=== PATIENT | female | born 1945 | race Caucasian/White ===

== ENCOUNTER 2020-06-23 09:00 | Outpatient (REF) | payer MEDICARE, SELFPAY ==
--- NOTE | 2020-06-23 | MM_ITS ---
EXAMINATION: MM SCREENING DIGITAL BREAST TOMOSYNTHESIS, BILATERAL CLINICAL INFORMATION: Screening. Asymptomatic. The lifetime risk of breast cancer based on the Tyrer-Cuzick Model is 4%. COMPARISON: Mammography: 01/21/2019, 12/24/2017 TECHNIQUE: Digital breast tomosynthesis is performed in both the craniocaudal and mediolateral oblique views along with computer-aided detection (CAD). Synthesized 2D images are generated from the tomosynthesis. FINDINGS: There are scattered areas of fibroglandular density (ACR BI-RADS breast composition Category b). There are no significant masses, abnormal calcifications, or other abnormalities. Parenchymal pattern is similar to prior studies. IMPRESSION: No mammographic evidence of malignancy. ASSESSMENT: BI-RADS 1: Negative RECOMMENDATION: Routine annual mammography screening. This patient's information was entered into a reminder system with a target due date for their next mammogram.
== END 2020-06-23 09:01 | disposition home or self-care (01) ==
LOC: HO.MAMMO 09:00
PROVIDERS: PCP Internal Medicine; Visit Provider Internal Medicine
DX: Z12.31 Encounter for screening mammogram for malignant neoplasm of breast (principal)
CPT/HCPCS: 77063; 77067; 78014

== ENCOUNTER 2020-07-05 10:29 | Outpatient (REF) | payer MEDICARE, SELFPAY ==
--- NOTE | 2020-07-05 | MM_ITS ---
EXAMINATION: BONE DENSITOMETRY CLINICAL INDICATION: Age-related osteoporosis without current pathological fracture. COMPARISON: Previous BD dated 12/24/2017 and baseline BD dated 07/08/2007. TECHNIQUE: Using a [employer] DXA System (software version: 13.1) manufactured by [employer], dual-energy x-ray absorptiometry was performed of the lumbar spine and left hip. The images are of good technical quality. Summary results are attached. FINDINGS: AP SPINE L1-L2 (excluding L3 and L4): The data of L1-L4 has been changed to exclude the L3 and L4 vertebral bodies, because levocurvature and degenerative changes at these levels may cause overestimation of lumbar spine density. Current: BMD 0.721 g/cm2, Z-score -2.5, T-score 3.7, osteoporosis, 0.6% decrease from previous, 11.6% decrease from baseline (<5% change is not significant). Prior: BMD 0.725 g/cm2. Baseline: BMD 0.816 g/cm2. LEFT FEMUR, NECK: Current: BMD 0.590 g/cm2, Z-score -1.7, T-score -3.2, osteoporosis. Prior: BMD 0.694 g/cm2. Baseline: BMD 0.740 g/cm2. LEFT FEMUR, TOTAL: Current: BMD 0.737 g/cm2, Z-score -0.8, T-score -2.2, osteopenia, 2.6% decrease from previous, 10.8% decrease from baseline (<5% change is not significant). Prior: BMD 0.757 g/cm2. Baseline: BMD 0.826 g/cm2. IDENTIFIED RISK FACTORS: Menopause, tobacco use (current smoker), family history (parental hip fracture). HISTORY OF FRACTURE: None listed. MEDICATIONS: Vitamin D. IMPRESSION: 1. DIAGNOSIS: Osteoporosis based on the lowest T-score value of -3.7 in the lumbar spine applying World Health Organization criteria. 2. 10-YEAR FRACTURE RISK PREDICTION, FRAX: Major osteoporotic fracture (clinical spine, forearm, hip or shoulder) 50.3%. Hip fracture 41.6%. 3. Treatment Recommendations: NOF guidelines recommend consideration for treatment in postmenopausal women and men age 50 and older presenting with the following: -A hip or vertebral (clinical or morphometric) fracture. -T-score less than or equal to -2.5 at the femoral neck or spine after appropriate evaluation to exclude secondary causes. -Low bone mass at the hip or spine and a 10-year fracture probability by FRAX of greater than or equal to 3% for hip fracture or greater than or equal to 20% for major osteoporotic fracture based on the [place] adapted WHO algorithm. 4. Other Recommendations: All treatment decisions require clinical judgment and consideration of individual patient factors, including patient preferences, comorbidities, previous drug use, risk factors not captured in the FRAX model (e.g. frailty, falls, vitamin D deficiency, increased bone turnover, interval significant decline in bone density) and possible under or overestimation of fracture risk by FRAX. Additional medical evaluation for secondary cause of low bone mineral density may be appropriate. FUTURE SCAN RECOMMENDATION: People with diagnosed cases of osteoporosis or at high risk for fracture should have regular bone mineral density tests. For patients eligible for Medicare, routine testing is allowed once every 2 years. The testing frequency can be increased to one year for patients who have rapidly progressing disease, those who are receiving or discontinuing medical therapy to restore bone mass, or have additional risk factors.
== END 2020-07-05 10:30 | disposition home or self-care (01) ==
LOC: HO.MAMMO 10:29
PROVIDERS: PCP Internal Medicine; Visit Provider Internal Medicine
DX: Z13.820 Encounter for screening for osteoporosis (principal); M81.0 Age-related osteoporosis without current pathological fracture; F17.200 Nicotine dependence, unspecified, uncomplicated; Z78.0 Asymptomatic menopausal state; Z87.81 Personal history of (healed) traumatic fracture; Z79.899 Other long term (current) drug therapy
CPT/HCPCS: 77080

== ENCOUNTER 2020-09-09 08:38 | Outpatient (REF) | payer MEDICARE, SELFPAY ==
--- NOTE | 2020-09-09 11:28 | XR_ITS ---
EXAMINATION: XR PELVIS CLINICAL INFORMATION: Pain in unspecified hip. COMPARISON: None TECHNIQUE: 04/05/2016 FINDINGS: Compared to the prior study there has been no significant progression of degenerative changes in the right hip with nearly [id number] appearance superiorly. Sclerosis and some osteophyte formation is present appearances of the left hip are unchanged. Only mild degenerative changes are seen on the left. . XR/XR pelvis 1-2V IMPRESSION: Progression of significant degenerative changes in the right hip with near [id number] appearance of the superior joint space.
== END 2020-09-09 08:39 | disposition home or self-care (01) ==
LOC: HO.HOSX 08:38
PROVIDERS: Visit Provider Orthopaedic Surgery
DX: M16.11 Unilateral primary osteoarthritis, right hip (principal)
CPT/HCPCS: 72170; 99212

== ENCOUNTER → 2020-09-28 10:53 | Outpatient (BNVA) | payer MEDICARE, SELFPAY | PROVIDERS: PCP Internal Medicine; Visit Provider Urology | DX: N32.81 Overactive bladder (principal) | CPT/HCPCS: Q3014 ==

== ENCOUNTER 2020-09-30 07:06 | Outpatient (REF) | payer MEDICARE, SELFPAY ==
[2020-09-30 08:31] LABS: Alanine Aminotransferase 12 U/L (0-31); Anion Gap 12 (12-20); Aspartate Amino Transferase 15 U/L (5-31); Blood Urea Nitrogen 15 mg/dL (9-16); Calcium 9.2 mg/dL (8.4-10.2); Carbon Dioxide 29 mmol/L (22-29); Chloride 106 mmol/L (96-108); Cholesterol 156 mg/dL; Estimated Glomerular Filt Rate > 60; Glucose Random 86 mg/dL (60-115); HDL Cholesterol 47 mg/dL; LDL Cholesterol Calculated 89 mg/dl; Potassium 4.5 mmol/l (3.3-5.1); Sodium 142 mmol/L (135-145); Triglycerides 103 mg/dL
[2020-09-30 08:53] LABS: Vitamin D 25-OH Total 100.4 ng/mL (>30)
== END 2020-09-30 07:07 | disposition home or self-care (01) ==
LOC: HO.LAB 07:06
PROVIDERS: Visit Provider Internal Medicine
DX: E78.5 Hyperlipidemia, unspecified (principal); M81.0 Age-related osteoporosis without current pathological fracture; E66.09 Other obesity due to excess calories; Z68.31 Body mass index [BMI] 31.0-31.9, adult; E55.9 Vitamin D deficiency, unspecified
CPT/HCPCS: 36415; 80048; 80061; 82306; 84450; 84460

== ENCOUNTER 2020-12-06 06:09 | Outpatient (REF) | payer MEDICARE, SELFPAY | END 2020-12-06 06:10 | disposition home or self-care (01) | LOC: HO.RADIR 06:09 | PROVIDERS: Visit Provider Anesthesiology | DX: Z13.89 Encounter for screening for other disorder (principal) | CPT/HCPCS: J3300; Q9967 ==

== ENCOUNTER → 2020-12-14 07:57 | Outpatient (BNVA) | payer MEDICARE, SELFPAY | PROVIDERS: PCP Internal Medicine; Referring Provider Internal Medicine; Visit Provider Internal Medicine | DX: M81.0 Age-related osteoporosis without current pathological fracture (principal); E55.9 Vitamin D deficiency, unspecified | CPT/HCPCS: 99202 ==

== ENCOUNTER 2020-12-14 08:46 | Outpatient (REF) | payer MEDICARE, SELFPAY ==
[2020-12-14 10:52] LABS: Albumin Level 4.2 g/dL (3.5-5.0); Calcium 9.3 mg/dL (8.4-10.2); Phosphorus 3.8 mg/dL (2.7-4.5)
[2020-12-14 11:02] LABS: Thyroid Stimulating Hormone 1.08 uIU/mL (0.32-4.0)
[2020-12-15 15:01] LABS: Prot Elec - Albumin 4.1 g/dL (3.8-4.8); Prot Elec - Alpha1 0.4 g/dL (0.2-0.3); Prot Elec - Alpha2 0.9 g/dL (0.5-0.9); Prot Elec - Beta 1 0.5 g/dL (0.4-0.6); Prot Elec - Beta 2 0.3 g/dL (0.2-0.5); Prot Elec - Total Protein 7.1 g/dL (6.1-8.1)
[2020-12-15 16:12] LABS: Calcium, Ionized 4.9 mg/dL (4.8-5.6)
[2020-12-15 18:11] LABS: Calcium (PTHI) 9.6 mg/dL (8.6-10.4); PTHI 35 pg/mL (14-64)
[2020-12-17 12:56] LABS: Alkaline Phosphatase Bone 14.7 mcg/L (5.6-29.0)
[2020-12-20 16:02] LABS: N-Telopeptide 57 (see note); NTXCreaRU 65 mg/dL (20-275)
== END 2020-12-14 08:47 | disposition home or self-care (01) ==
LOC: HO.10HDL 08:46
PROVIDERS: Visit Provider Internal Medicine
DX: M81.0 Age-related osteoporosis without current pathological fracture (principal)
CPT/HCPCS: 36415; 82040; 82310; 82330; 82523; 83970; 84075; 84100; 84155; 84165; 84443

== ENCOUNTER 2020-12-26 12:14 | Outpatient (REF) | payer MEDICARE, SELFPAY ==
[2020-12-26 13:00] LABS: Creatinine, 24Hr Urine 0.8 G/Day (1.0-2.0); Creatinine, mg/dL 75.24; Total Volume 24 Hour Urine 1000 mL
[2020-12-27 19:01] LABS: Calcium, 24 Hr Urine 170 mg/24 h; Calcium/Creatinine Ratio 224 mg/g creat (30-275); Creatinine 24Hr Urine 0.76 g/24 h (0.50-2.15)
== END 2020-12-26 12:15 | disposition home or self-care (01) ==
LOC: HO.LNP 12:14
PROVIDERS: Visit Provider Internal Medicine
DX: M81.0 Age-related osteoporosis without current pathological fracture (principal)
CPT/HCPCS: 82340; 82570

== ENCOUNTER 2021-01-10 06:05 | Outpatient (REF) | payer MEDICARE, SELFPAY ==
--- NOTE | ~2021-01-10 | FL_ITS ---
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 Fluoroscopy time: 0.2 minutes DAP: 1.72 Gycm2 Images: 2 FINDINGS: There is a spinal needle overlying the superior lateral right hip joint with some intracapsular contrast demonstrated. There are osteoarthritic changes again seen with superior hip joint narrowing and subchondral sclerosis and spurring. FL/FL guidance in treatment room IMPRESSION: Fluoroscopy for pain management procedure.
== END 2021-01-10 06:06 | disposition home or self-care (01) ==
LOC: HO.RADIR 06:05
PROVIDERS: Visit Provider Anesthesiology
DX: M16.11 Unilateral primary osteoarthritis, right hip (principal)
CPT/HCPCS: 20610; J3300; Q9967

== ENCOUNTER → 2021-02-13 08:32 | Outpatient (BNVA) | payer MEDICARE, SELFPAY | PROVIDERS: PCP Internal Medicine; Visit Provider Internal Medicine | CPT/HCPCS: Q3014 ==

== ENCOUNTER → 2021-02-15 11:04 | Outpatient (BNVA) | payer MEDICARE, SELFPAY | PROVIDERS: PCP Internal Medicine; Visit Provider Anesthesiology | DX: M16.11 Unilateral primary osteoarthritis, right hip (principal) | CPT/HCPCS: Q3014 ==

== ENCOUNTER 2021-03-11 07:34 | Outpatient (REF) | payer MEDICARE, SELFPAY ==
[2021-03-11 08:24] LABS: Alanine Aminotransferase 7 U/L (0-31); Anion Gap 13 (12-20); Aspartate Amino Transferase 14 U/L (5-31); Blood Urea Nitrogen 13 mg/dL (9-16); Calcium 9.7 mg/dL (8.4-10.2); Carbon Dioxide 28 mmol/L (22-29); Chloride 107 mmol/L (96-108); Cholesterol 168 mg/dL; Estimated Glomerular Filt Rate > 60; Glucose Fasting 90 mg/dL (60-99); HDL Cholesterol 47 mg/dL; LDL Cholesterol Calculated 97 mg/dl; Potassium 4.5 mmol/L (3.3-5.1); Sodium 143 mmol/L (135-145); Triglycerides 122 mg/dL
[2021-03-11 08:47] LABS: Vitamin D 25-OH Total 42.6 ng/mL (>30)
== END 2021-03-11 07:35 | disposition home or self-care (01) ==
LOC: HO.LAB 07:34
PROVIDERS: PCP Internal Medicine; Visit Provider Internal Medicine
DX: M81.0 Age-related osteoporosis without current pathological fracture (principal); E78.5 Hyperlipidemia, unspecified; I10 Essential (primary) hypertension
CPT/HCPCS: 36415; 80048; 80061; 82306; 84450; 84460

== ENCOUNTER → 2021-04-17 07:43 | Outpatient (BNVA) | payer MEDICARE, SELFPAY | PROVIDERS: PCP Internal Medicine; Visit Provider Internal Medicine | CPT/HCPCS: Q3014 ==

== ENCOUNTER 2021-05-21 11:07 | Inpatient (IN) | payer MEDICARE, SELFPAY ==
[2021-05-21] VITALS (7 sets, daily range): BP systolic 125–140; BP diastolic 60–80; PULSE 74–108; RESP 16–20; TEMP 36.1–37.2; O2SAT 94–99; BMI 28.7
--- NOTE | ~2021-05-21 | MR_ITS ---
MR BRAIN WITHOUT AND WITH CONTRAST CLINICAL INFORMATION: Lung cancer to rule out brain metastases. COMPARISON: None available. TECHNIQUE: Multiplanar, multisequence MRI of the brain was obtained before and after the intravenous administration of 8 mL Gadavist. FINDINGS: There is global cerebral volume loss and there is mild chronic microangiopathy. There is no hydrocephalus, extra-axial surface collection, or herniation. The major flow voids at the skull base are preserved. There is no acute infarct on diffusion-weighted imaging. There is no intracranial hemorrhage on the gradient recalled echo acquisition. The midline structures are normal. The cerebellar tonsils are normally positioned. The cerebellum and brainstem are normal. The craniocervical junction is normal. Osseous marrow signal intensity is homogenous. The visualized soft tissues are unremarkable. Left maxillary sinus is nearly completely opacified. MR/MR head/brain wo/w con IMPRESSION: - There is no evidence of intracranial metastatic disease; there are no enhancing lesions intracranially. - There is global cerebral volume loss and there is mild chronic microangiopathy. - Left maxillary sinus is nearly completely opacified.
--- NOTE | ~2021-05-21 | CT_ITS ---
EXAMINATION: CT CHEST WITHOUT CONTRAST CLINICAL INFORMATION: Coughing congestion with leukocytosis. COMPARISON: Chest x-ray of same day TECHNIQUE: Multidetector volumetric CT imaging of the chest was done. Axial MIP volume rendering provided. Sagittal and coronal reformatted images were obtained. This CT examination was performed using dose optimization techniques as appropriate, variously including the following: *Automated exposure control *Adjustment of mA and/or kV according to patient size (this includes techniques or standardized protocols for targeted exams where dose is matched to indication/reason for exam; i.e. extremities or head) *Use of iterative reconstruction technique DLP: 234.62 mGy-cm FINDINGS: LUNGS: There are moderate changes of centrilobular emphysema seen throughout the lungs. The trachea is patent. The left mainstem bronchus appears unremarkable. There appears to be some concentric narrowing of the right mainstem bronchus from soft tissue density about the mediastinum and right hilum. There is consolidative disease seen within the posterior aspect of the right upper lobe. The more peripheral aspect of the disease is not as consolidated as the more central portion. This finding may be related to postobstructive pneumonitis from a more central mass. There are some cystic changes seen within the peripheral region of disease which appears to be related to be centrilobular emphysema. There are numerous sub-4 mm densities present. There are some enlarged densities along the right minor fissure consistent with enlarged lymph nodes. One of these measures approximately 1.1 x 0.5 cm in size. There is bilateral apical pleural-parenchymal scarring. There is a 5 mm noncalcified subpleural nodule seen within the right lower lobe on image 242 of [id number]. MEDIASTINUM: Heart normal size. Coronary artery calcification is seen. No pericardial effusion. As ascending thoracic aorta measures 4 cm in diameter. There is bulky mediastinal and right hilar adenopathy/mass present. Within the precarinal region there appears be a 3.4 x 3.4 cm soft tissue density/mass. This extends in a vertical length to approximately 5.2 cm. The soft tissue density appears to encase the right mainstem bronchus with extension of soft tissue density into the hilum. Its difficult to differentiate between what is consolidated lung and what may be central mass. PLEURA: No pleural effusion is seen. AXILLA: No axillary lymphadenopathy is noted. Internal mammary chain unremarkable. UPPER ABDOMEN: Unremarkable. OSSEOUS STRUCTURES: No suspicious destructive bony lesion identified. Multilevel degenerative disc disease. There are mild anterior chronic compression fractures at the T7 and T8 levels with some kyphosis. CT/CT chest wo con IMPRESSION: Right mediastinal and hilar lymphadenopathy/soft tissue mass causing narrowing of the right mainstem bronchus with what appears to be postobstructive pneumonitis. Significant centrilobular emphysema.
--- NOTE | ~2021-05-21 | XR_ITS ---
EXAMINATION: XR CHEST CLINICAL INFORMATION: Cough, congestion and shortness of breath. COMPARISON: Chest radiograph on 05/14/2007. TECHNIQUE: Frontal view of the chest was obtained. FINDINGS: The heart is normal in size. The cardiomediastinal and hilar contours are within normal limits. There is increased opacity overlying the right upper lung concerning for pneumonia. No pleural effusion or pneumothorax. Minimal scarring seen at the left lung apex. XR/XR chest 1V IMPRESSION: Opacity overlying the right upper lung is concerning for right upper lobe pneumonia. Consider follow-up imaging after treatment.
[2021-05-21 11:50] LABS: Hemoglobin 13.1 g/dl (12.0-16.0); Mean Corpuscular Hemoglobin 26.4 pg (27.0-33.0); Mean Corpuscular Volume 82.7 fL (80-98); Mean Platelet Volume 8.3 fL (9.4-12.3); Platelet Count 263 X10*3/uL (160-400); Red Blood Count 4.96 X10*6/uL (4.20-5.50); Red Cell Distribution Width 14.6 % (11.0-16.0); White Blood Count 17.5 X10*3/uL (4.8-10.8)
--- NOTE | 2021-05-21 12:13 | ED_ITS ---
HPI - URI/Sore Throat General Chief Complaint: Upper Respiratory Symptoms Stated Complaint: congested Time Seen by Provider: 05/21/21 11:51 Source: patient Mode of arrival: ambulatory History of Present Illness HPI Narrative: 75-year-old female with a past medical history of anxiety, hyperlipidemia, urge incontinence, vaccinated with Pfizer, presenting to the ED complaining of 1 week of dry cough, congestion, and SOB. Denies fever, chills, chest pain, abdominal pain, nausea/vomiting, LE edema, sick contacts, recent travel, COVID-19 exposure, history blood clots Related Data Home Medications Medication Instructions Recorded Confirmed calcium carbonate 320 mg calcium 650 mg PO DAILY 04/17/21 05/21/21 (750 mg) chewable tablet (Calcium Antacid) Previous Rx's Medication Instructions Recorded atorvastatin 10 mg tablet 10 mg PO DAILY #90 tab 06/28/20 mirabegron 25 mg tablet,extended 25 mg PO DAILY #90 tab 09/28/20 release 24 hr (Myrbetriq) lorazepam 0.5 mg tablet 0.5 mg PO DAILY PRN #20 tab 04/19/21 naproxen 500 mg tablet 500 mg PO .QD PRN #30 tab 04/24/21 Allergies Allergy/AdvReac Type Severity Reaction Status Date / Time No Known Allergies Allergy Verified 05/21/21 11:14 Review of Systems Review of Systems: Constitutional: No Fever, No Chills, No Fatigue, No Malaise ENT/Mouth: No Ear Pain, +Nasal Congestion, No Hoarseness, No sore throat, No Rhinorrhea Eyes: No Eye Pain, No Swelling, No Redness, No Discharge Cardiovascular: No Chest Pain, +SOB, No Orthopnea, No Edema, No Palpitations Respiratory: + Cough, No Wheezing, No Dyspnea Gastrointestinal: No Nausea, No Vomiting, No Diarrhea, No Constipation, No Abdominal pain Genitourinary: No Dysuria, No Urinary Frequency, No Hematuria Musculoskeletal: No joint pain, No Myalgias Skin: No Skin Lesions, No rash Neuro: No Weakness, No Numbness, No Headache Yes all other systems are reviewed and are negative [facility] Past Medical History Attestation statement: The following information was validated with the patient. Medical History Anxiety Dyslipidemia Osteoarthritis of right hip Osteoporosis Smoker unmotivated to quit Tubular adenoma of colon Urge incontinence of urine Vaccination refused by patient Vitamin D deficiency Surgical History History of colonoscopy Family History Family History Father Leukemia Mother Hip fracture Congestive heart failure Brother Bladder cancer Social History Social History Household Members: Spouse Housing: House Do you presently have visiting nurse or other home services: No Alcohol intake: never Patient Tobacco Use Status: Current everyday Tobacco user Tobacco use type: Cigarette Cigarette Packs Per Day: 1 Years Smoked: more than 50 years e-Cigarette/Vaping Use: Never Used Use of substances other than those prescribed or required for medical reasons: No Have you been hit, kicked, punched, or otherwise hurt by someone within the past year? If so, by whom?: No Do you feel safe in your current relationship?: Yes Is there a partner from a previous relationship who is making you feel unsafe now?: No Are you made to feel afraid or neglected: No Advance Directives: No Advance Directives Information Provided: No Do you have thoughts of harming others: None Do you have a plan to hurt others: No Plan Recently lost weight without trying: No Nutrition Risks: No Nutritional Risk Physical Exam Vital Signs: Vital Signs: Last Vital Signs Temp 97.4 F 05/21/21 19:47 Pulse 95 05/21/21 20:21 Resp 18 05/21/21 19:47 BP 125/66 05/21/21 19:47 Pulse Ox 97 05/21/21 19:47 Body Mass Index 28.7 Const: General: cooperative, healthy appearing and no acute distress Orientation/consciousness: patient oriented x3 Limitations: no limitations HENMT: Head: Yes normal to inspection Ears: hearing grossly normal bilaterally General nose exam: Normal external nose present Face and sinus: Yes normal facial exam Eyes: General: appearance normal, both eyes and all related structures EOM: EOMs intact bilaterally Neck: Neck: Yes normal visual inspection and Yes no meningeal signs Resp: Effort & Inspection: normal respiratory effort Auscultation: clear to auscultation bilaterally, no rales, no rhonchi and no wheezes Cardio: Rate: regular rate Heart sounds: S1 normal heart sound present and S2 normal heart sound present GI: Inspection: Yes normal to inspection Palpation (GI): Soft to palpation, nontender, no guarding and not rigid Skin: Rashes: no rashes Wounds: no wounds Neuro: General: patient oriented x3 and no meningeal signs Gait exam (Neuro): Normal gait present Extrem: General: Yes normal to inspection, Yes no pedal edema and Yes no calf tenderness Course Course Course Narrative: -1305--noted leukocytosis of 17.5, repeat vitals with tachycardia 108 >> lactic/blood cultures added and empiric IV Ceftriaxone. Will obtain dry CT chest. -1426--labs otherwise unremarkable, lactic acid negative -COVID-19/influenza/RSV negative XR chest 1V IMPRESSION: Opacity overlying the right upper lung is concerning for right upper lobe pneumonia. Consider follow-up imaging after treatment. >Azithromycin added >> plan for admission as patient meets SIRS criteria -UA with wbc's and leuk esterase but contaminated 1449--CT chest wo con IMPRESSION: Right mediastinal and hilar lymphadenopathy/soft tissue mass causing narrowing of the right mainstem bronchus with what appears to be postobstructive pneumonitis. ? Significant centrilobular emphysema. >> thoracic surgery consulted -1508--thoracic surgery will consult on patient. Patient admitted to hospitalist service MDM - URI/Sore Throat MDM Narrative Medical decision making narrative: 75-year-old female with a past medical history of anxiety, hyperlipidemia, urge incontinence, vaccinated with Pfizer, presenting to the ED complaining of 1 week of dry cough, congestion, and SOB. On exam VSS, NAD/nontoxic appearing, lungs CTA, no pedal edema or calf te nderness, concern for viral syndrome/COVID-19. Will pneumonia. Low concern for ACS/PE or CHF Plan: Labs, COVID-19 testing, CXR, albuterol, symptomatic remedies, reassess Lab Data Result diagrams: 05/21/21 11:45 05/21/21 12:35 Labs: Lab Results 05/21/21 05/21/21 05/21/21 Range/Units 11:20 11:45 11:45 WBC 17.5 H (4.8-10.8) X10*3/uL RBC 4.96 (4.20-5.50) X10*6/uL Hgb 13.1 (12.0-16.0) g/dl Hct 41.0 (37-47) % MCV 82.7 (80-98) fL MCH 26.4 L (27.0-33.0) pg MCHC 32.0 (31.0-35.0) g/dl RDW 14.6 (11.0-16.0) % Plt Count 263 (160-400) X10*3/uL MPV 8.3 L (9.4-12.3) fL Immature Gran % (Auto) Cancelled Neut % (Auto) Cancelled Lymph % (Auto) Cancelled [place] % (Auto) Cancelled Eos % (Auto) Cancelled Baso % (Auto) Cancelled Lymph # (Auto) Cancelled [place] # (Auto) Cancelled Eos # (Auto) Cancelled Baso # (Auto) Cancelled Abs Immat Gran (auto) Cancelled Absolute Neuts (auto) Cancelled Absolute Nucleated RBC 0.000 (0.0-0.012) X10*3/uL Nucleated RBC % (auto) 0.0 (0.0-0.2) /100WBC Neutrophils % (Manual) 81 H (45-73) % Band Neutrophils % 12 H (3-5) % Lymphocytes % (Manual) 3 L (20-40) % Monocytes % (Manual) 4 (2-11) % Abs Neuts (Manual) 16.3 H (2.2-7.9) X10*3/uL Lymphocytes # (Manual) 0.5 L (0.6-4.8) X10*3/uL Monocytes # (Manual) 0.7 (0.0-1.2) X10*3/uL Toxic Vacuolation PRESENT Platelet Estimate NORMAL (NORMAL) Plt Morphology Comment NORMAL RBC Morphology NORMAL Sodium (135-145) mmol/L Potassium (3.3-5.1) mmol/L Chloride (96-108) mmol/L Carbon Dioxide (22-29) mmol/L Anion Gap (12-20) BUN (9-16) mg/dL Creatinine (0.5-1.4) mg/dL Estim Creat Clear Calc Estimated GFR Random Glucose (60-115) mg/dL Lactic Acid (0.5-2.0) mmol/L Calcium (8.4-10.2) mg/dL Magnesium (1.6-2.6) mg/dL Total Bilirubin (0.0-1.0) mg/dL Direct Bilirubin (0.0-0.5) mg/dL AST (5-31) U/L ALT (0-31) U/L Alkaline Phosphatase (39-117) U/L B-Natriuretic Peptide 13 (<100) pg/mL Total Protein (6.5-8.0) g/dL Albumin (3.5-5.0) g/dL Procalcitonin ng/mL Urine Color Urine Appearance Urine pH (5.0-8.0) Ur Specific [place] (1.005-1.025) Urine Protein (NEG-TRACE) MG/DL Urine Glucose (UA) (NEG) MG/DL Urine Ketones (NEG) MG/DL Urine Blood (NEG) Urine Nitrite (NEG) Ur Leukocyte Esterase (NEG) Urine RBC (0) /HPF Urine WBC (0-4) /HPF Ur Squamous Epith Cells /LPF Urine Bacteria /LPF Urine Mucus /LPF Coronavirus (PCR) NEGATIVE (Negative) Influenza Type A (PCR) NEGATIVE (Negative) Influenza Type B (PCR) NEGATIVE (Negative) RSV RNA Qual (PCR) NEGATIVE (Negative) 05/21/21 05/21/21 05/21/21 Range/Units 12:35 12:35 13:49 WBC (4.8-10.8) X10*3/uL RBC (4.20-5.50) X10*6/uL Hgb (12.0-16.0) g/dl Hct (37-47) % MCV (80-98) fL MCH (27.0-33.0) pg MCHC (31.0-35.0) g/dl RDW (11.0-16.0) % Plt Count (160-400) X10*3/uL MPV (9.4-12.3) fL Immature Gran % (Auto) Neut % (Auto) Lymph % (Auto) [place] % (Auto) Eos % (Auto) Baso % (Auto) Lymph # (Auto) [place] # (Auto) Eos # (Auto) Baso # (Auto) Abs Immat Gran (auto) Absolute Neuts (auto) Absolute Nucleated RBC (0.0-0.012) X10*3/uL Nucleated RBC % (auto) (0.0-0.2) /100WBC Neutrophils % (Manual) (45-73) % Band Neutrophils % (3-5) % Lymphocytes % (Manual) (20-40) % Monocytes % (Manual) (2-11) % Abs Neuts (Manual) (2.2-7.9) X10*3/uL Lymphocytes # (Manual) (0.6-4.8) X10*3/uL Monocytes # (Manual) (0.0-1.2) X10*3/uL Toxic Vacuolation Platelet Estimate (NORMAL) Plt Morphology Comment RBC Morphology Sodium 138 (135-145) mmol/L Potassium 4.2 (3.3-5.1) mmol/L Chloride 103 (96-108) mmol/L Carbon Dioxide 26 (22-29) mmol/L Anion Gap 13 (12-20) BUN 13 (9-16) mg/dL Creatinine 0.85 (0.5-1.4) mg/dL Estim Creat Clear Calc 62.1 Estimated GFR > 60 Random Glucose 100 (60-115) mg/dL Lactic Acid 1.7 (0.5-2.0) mmol/L Calcium 9.6 (8.4-10.2) mg/dL Magnesium 1.7 (1.6-2.6) mg/dL Total Bilirubin 0.5 (0.0-1.0) mg/dL Direct Bilirubin 0.2 (0.0-0.5) mg/dL AST 11 (5-31) U/L ALT 9 (0-31) U/L Alkaline Phosphatase 125 H (39-117) U/L B-Natriuretic Peptide (<100) pg/mL Total Protein 7.0 (6.5-8.0) g/dL Albumin 4.1 (3.5-5.0) g/dL Procalcitonin 0.29 ng/mL Urine Color Urine Appearance Urine pH (5.0-8.0) Ur Specific [place] (1.005-1.025) Urine Protein (NEG-TRACE) MG/DL Urine Glucose (UA) (NEG) MG/DL Urine Ketones (NEG) MG/DL Urine Blood (NEG) Urine Nitrite (NEG) Ur Leukocyte Esterase (NEG) Urine RBC (0) /HPF Urine WBC (0-4) /HPF Ur Squamous Epith Cells /LPF Urine Bacteria /LPF Urine Mucus /LPF Coronavirus (PCR) (Negative) Influenza Type A (PCR) (Negative) Influenza Type B (PCR) (Negative) RSV RNA Qual (PCR) (Negative) 05/21/21 Range/Units 14:03 WBC (4.8-10.8) X10*3/uL RBC (4.20-5.50) X10*6/uL Hgb (12.0-16.0) g/dl Hct (37-47) % MCV (80-98) fL MCH (27.0-33.0) pg MCHC (31.0-35.0) g/dl RDW (11.0-16.0) % Plt Count (160-400) X10*3/uL MPV (9.4-12.3) fL Immature Gran % (Auto) Neut % (Auto) Lymph % (Auto) [place] % (Auto) Eos % (Auto) Baso % (Auto) Lymph # (Auto) [place] # (Auto) Eos # (Auto) Baso # (Auto) Abs Immat Gran (auto) Absolute Neuts (auto) Absolute Nucleated RBC (0.0-0.012) X10*3/uL Nucleated RBC % (auto) (0.0-0.2) /100WBC Neutrophils % (Manual) (45-73) % Band Neutrophils % (3-5) % Lymphocytes % (Manual) (20-40) % Monocytes % (Manual) (2-11) % Abs Neuts (Manual) (2.2-7.9) X10*3/uL Lymphocytes # (Manual) (0.6-4.8) X10*3/uL Monocytes # (Manual) (0.0-1.2) X10*3/uL Toxic Vacuolation Platelet Estimate (NORMAL) Plt Morphology Comment RBC Morphology Sodium (135-145) mmol/L Potassium (3.3-5.1) mmol/L Chloride (96-108) mmol/L Carbon Dioxide (22-29) mmol/L Anion Gap (12-20) BUN (9-16) mg/dL Creatinine (0.5-1.4) mg/dL Estim Creat Clear Calc Estimated GFR Random Glucose (60-115) mg/dL Lactic Acid (0.5-2.0) mmol/L Calcium (8.4-10.2) mg/dL Magnesium (1.6-2.6) mg/dL Total Bilirubin (0.0-1.0) mg/dL Direct Bilirubin (0.0-0.5) mg/dL AST (5-31) U/L ALT (0-31) U/L Alkaline Phosphatase (39-117) U/L B-Natriuretic Peptide (<100) pg/mL Total Protein (6.5-8.0) g/dL Albumin (3.5-5.0) g/dL Procalcitonin ng/mL Urine Color YELLOW Urine Appearance HAZY Urine pH 6.0 (5.0-8.0) Ur Specific [place] 1.015 (1.005-1.025) Urine Protein TRACE (NEG-TRACE) MG/DL Urine Glucose (UA) NEG (NEG) MG/DL Urine Ketones NEG (NEG) MG/DL Urine Blood TRACE (NEG) Urine Nitrite NEG (NEG) Ur Leukocyte Esterase 2+ H (NEG) Urine RBC 1-4 (0) /HPF Urine WBC 5-9 H (0-4) /HPF Ur Squamous Epith Cells 3+ /LPF Urine Bacteria 1+ /LPF Urine Mucus 1+ /LPF Coronavirus (PCR) (Negative) Influenza Type A (PCR) (Negative) Influenza Type B (PCR) (Negative) RSV RNA Qual (PCR) (Negative) Discharge Plan Discharge Clinical Impression: Mediastinal mass Pneumonia Qualifiers: Pneumonia type: due to unspecified organism Laterality: right Patient Disposition: Admitted As Inpatient Interventions: Admission Worksheet (ED) Last Done: 05/21/21 19:32 Discharge Date/Time: 05/21/21 19:33
[2021-05-21 12:14] LABS: Influenza A PCR NEGATIVE (Negative); Influenza B PCR NEGATIVE (Negative); Resp Syncy Virus RNA Qual PCR NEGATIVE (Negative); SARS COV2 PCR INHOUSE NEGATIVE (Negative)
[2021-05-21 12:17] LABS: Band Neutrophils Percent 12 % (3-5); Lymphocytes Absolute Manual 0.5 X10*3/uL (0.6-4.8); Lymphocytes Percent Manual 3 % (20-40); Monocytes Absolute Manual 0.7 X10*3/uL (0.0-1.2); Monocytes Percent Manual 4 % (2-11); Neutrophils Absolute Manual 16.3 X10*3/uL (2.2-7.9); Neutrophils Percent Manual 81 % (45-73); RBC Morphology NORMAL
[2021-05-21 12:18] LABS: Platelet Estimate NORMAL (NORMAL); Platelet Morphology Comment NORMAL; Toxic Vacuolation PRESENT
[2021-05-21 12:36] LABS: B Type Natriuretic Peptide 13 pg/mL (<100)
[2021-05-21] MEDS: guaiFENesin LA 600 MG TAB.ER.12H PO (12:36)
[2021-05-21] MEDS: Benzonatate 100 MG CAPSULE PO (12:36)
[2021-05-21 13:12] LABS: Alanine Aminotransferase 9 U/L (0-31); Albumin Level 4.1 g/dL (3.5-5.0); Alkaline Phosphatase 125 U/L (39-117); Anion Gap 13 (12-20); Aspartate Amino Transferase 11 U/L (5-31); Bilirubin Direct 0.2 mg/dL (0.0-0.5); Bilirubin Total 0.5 mg/dL (0.0-1.0); Blood Urea Nitrogen 13 mg/dL (9-16); Calcium 9.6 mg/dL (8.4-10.2); Carbon Dioxide 26 mmol/L (22-29); Chloride 103 mmol/L (96-108); Creatinine Clr Calc Pharmacy 62.1; Estimated Glomerular Filt Rate > 60; Glucose Random 100 mg/dL (60-115); Magnesium 1.7 mg/dL (1.6-2.6); Potassium 4.2 mmol/L (3.3-5.1); Sodium 138 mmol/L (135-145)
[2021-05-21] MEDS: Albuterol Sulfate 90 MCG 8 GM INHALER 4 PUFF INHALE (13:12)
[2021-05-21] MEDS: cefTRIAXone sodium 1 GM in 0.9 % Sodium Chloride 50 ML IV (14:05)
[2021-05-21 14:10] LABS: Lactic Acid 1.7 mmol/L (0.5-2.0)
[2021-05-21 14:18] LABS: Glucose Urine UA NEG (NEG); Leukocyte Esterase Urine 2+ (NEG); Nitrite Urine NEG (NEG); Specific Gravity - Urine 1.015 (1.005-1.025); UACC Culture Trigger YES; Urine Blood TRACE (NEG); Urine Ketones NEG (NEG); Urine Protein TRACE MG/DL (NEG-TRACE)
[2021-05-21 14:28] LABS: Appearance Urine HAZY; Color Urine YELLOW
[2021-05-21 14:30] LABS: Bacteria Urine 1+ /LPF; Mucus Urine 1+ /LPF; Squamous Epithelial Cell Urine 3+ /LPF
[2021-05-21] MEDS: Azithromycin 500 MG in 0.9 % Sodium Chloride 250 ML 125 MG IV (14:57)
[2021-05-21 15:57] LABS: Procalcitonin 0.29 ng/mL
--- NOTE | 2021-05-21 16:30 | P.HPHOSP_ITS ---
History of Present Illness Date of Service: 05/21/21 Chief Complaint: shortness of breath/cough 75yo woman with 20 pack-year history of smoking without diagnosis of chronic lung disease presents with 2-week history of worsening non-productive cough and dyspnea. No fever, chills, weight loss, night sweats, hemoptysis, chest pain, nausea, or vomiting. She met sepsis criteria in the ED with tachycardia and leukocytosis. She was found on CXR to have RUL pneumonia; CT chest shows a large bulky mediastinal and right hilar mass, approximately 3.4 by 3.4 by 5.2 cm, encasing the right mainstem bronchus with postobstructive pneumonia. She is not on aspirin or any blood thinners. She was given ceftriaxone and az ithromycin. Review of Systems Review of Systems: Yes all other systems are reviewed and are negative [facility] Medical History Anxiety Dyslipidemia Osteoarthritis of right hip Osteoporosis Smoker unmotivated to quit Tubular adenoma of colon Urge incontinence of urine Vaccination refused by patient Vitamin D deficiency Family History Father Leukemia Mother Hip fracture Congestive heart failure Brother Bladder cancer Surgical History History of colonoscopy Social History Alcohol intake: never Patient Tobacco Use Status: Current everyday Tobacco user Tobacco use type: Cigarette Cigarette Packs Per Day: 1 Years Smoked: more than 50 years e-Cigarette/Vaping Use: Never Used Use of substances other than those prescribed or required for medical reasons: No Advance Directives: No Advance Directives Information Provided: No Meds Allergies Allergy/AdvReac Type Severity Reaction Status Date / Time No Known Allergies Allergy Verified 05/21/21 11:14 Active Medications: Current Medications Generic Name Dose Route Start Last Admin Trade Name Freq PRN Reason Stop Dose Admin Acetaminophen 650 mg 05/21/21 16:25 Acetaminophen 325 Mg Tablet PO Q6H PRN Pain, Mild (Pain Scale 1-3) Atorvastatin Calcium 10 mg 05/22/21 09:00 Atorvastatin Calcium 10 Mg Tablet PO DAILY [facility] Calcium Carbonate 750 mg 05/22/21 09:00 Calcium Carbonate 750 Mg Tab.Chew PO DAILY [facility] Ceftriaxone Sodium 1 gm/ 50 mls @ 100 mls/hr 05/22/21 13:00 Sodium Chloride IV Q24H [facility] Doxycycline Hyclate 100 mg/ 250 mls @ 166.67 mls/hr 05/21/21 16:00 Sodium Chloride IV Q12H [facility] Lorazepam 0.5 mg 05/21/21 16:19 Lorazepam 0.5 Mg Tablet PO DAILY PRN anxiety Mirabegron 25 mg 05/22/21 09:00 Mirabegron 25 Mg Tab.Er.24h PO DAILY [facility] Nicotine 14 mg 05/21/21 16:30 Nicotine 14 Mg Patch.Td24 TRANSDERMA DAILY [facility] Ondansetron HCl 4 mg 05/21/21 16:25 Ondansetron Hcl 4 Mg/2 Ml Vial IVPUSH Q8H PRN Nausea and Vomiting Pharmacy Consult 1 each 05/21/21 14:41 Consult Rx Perform Med Rec MISCELLANE ONCE PRN Consult order Sodium Chloride 3 ml 05/22/21 00:00 0.9 % Sodium Chloride Flush 3 Ml Syringe IVFLUSH QSHIFT [facility] Home Medications Medication Instructions Recorded Confirmed Last Taken Type calcium carbonate 320 mg calcium 650 mg PO DAILY 04/17/21 05/21/21 Unknown History (750 mg) chewable tablet (Calcium Antacid) Physical Exam Vital Signs and Narrative: Vital Signs: Last Vital Signs Temp 99.0 F 05/21/21 12:01 Pulse 106 H 05/21/21 15:17 Resp 17 05/21/21 15:17 BP 140/80 H 05/21/21 15:17 Pulse Ox 96 05/21/21 15:17 Body Mass Index 28.7 Gen: in no acute distress HEENT: sclera anicteric, moist mucus membranes Neck: supple Lungs: diminished on R side with expiratory rhonchi Heart: tachycardic, no murmurs Abd: soft, non-tender, non-distended Ext: no edema Skin: warm/well-perfused Neuro: alert and oriented x3, no focal findings Psych: appropriate affect Results Labs CBC and Chem 7: 05/21/21 11:45 05/21/21 12:35 Labs: Laboratory Results - last 24 hr 05/21/21 05/21/21 05/21/21 11:20 11:45 11:45 MCV 82.7 MCH 26.4 L MCHC 32.0 RDW 14.6 Plt Count 263 MPV 8.3 L Immature Gran % (Auto) Cancelled Neut % (Auto) Cancelled Lymph % (Auto) Cancelled [place] % (Auto) Cancelled Eos % (Auto) Cancelled Baso % (Auto) Cancelled Lymph # (Auto) Cancelled [place] # (Auto) Cancelled Eos # (Auto) Cancelled Baso # (Auto) Cancelled Abs Immat Gran (auto) Cancelled Absolute Neuts (auto) Cancelled Absolute Nucleated RBC 0.000 Nucleated RBC % (auto) 0.0 Neutrophils % (Manual) 81 H Band Neutrophils % 12 H Lymphocytes % (Manual) 3 L Monocytes % (Manual) 4 Abs Neuts (Manual) 16.3 H Lymphocytes # (Manual) 0.5 L Monocytes # (Manual) 0.7 Toxic Vacuolation PRESENT Platelet Estimate NORMAL Plt Morphology Comment NORMAL RBC Morphology NORMAL Anion Gap Estim Creat Clear Calc Estimated GFR Random Glucose Lactic Acid Calcium Magnesium Total Bilirubin Direct Bilirubin AST ALT Alkaline Phosphatase B-Natriuretic Peptide 13 Total Protein Albumin Procalcitonin Urine Color Urine Appearance Urine pH Ur Specific [place] Urine Protein Urine Glucose (UA) Urine Ketones Urine Blood Urine Nitrite Ur Leukocyte Esterase Urine RBC Urine WBC Ur Squamous Epith Cells Urine Bacteria Urine Mucus Coronavirus (PCR) NEGATIVE Influenza Type A (PCR) NEGATIVE Influenza Type B (PCR) NEGATIVE RSV RNA Qual (PCR) NEGATIVE 05/21/21 05/21/21 05/21/21 12:35 12:35 13:49 MCV MCH MCHC RDW Plt Count MPV Immature Gran % (Auto) Neut % (Auto) Lymph % (Auto) [place] % (Auto) Eos % (Auto) Baso % (Auto) Lymph # (Auto) [place] # (Auto) Eos # (Auto) Baso # (Auto) Abs Immat Gran (auto) Absolute Neuts (auto) Absolute Nucleated RBC Nucleated RBC % (auto) Neutrophils % (Manual) Band Neutrophils % Lymphocytes % (Manual) Monocytes % (Manual) Abs Neuts (Manual) Lymphocytes # (Manual) Monocytes # (Manual) Toxic Vacuolation Platelet Estimate Plt Morphology Comment RBC Morphology Anion Gap 13 Estim Creat Clear Calc 62.1 Estimated GFR > 60 Random Glucose 100 Lactic Acid 1.7 Calcium 9.6 Magnesium 1.7 Total Bilirubin 0.5 Direct Bilirubin 0.2 AST 11 ALT 9 Alkaline Phosphatase 125 H B-Natriuretic Peptide Total Protein 7.0 Albumin 4.1 Procalcitonin 0.29 Urine Color Urine Appearance Urine pH Ur Specific [place] Urine Protein Urine Glucose (UA) Urine Ketones Urine Blood Urine Nitrite Ur Leukocyte Esterase Urine RBC Urine WBC Ur Squamous Epith Cells Urine Bacteria Urine Mucus Coronavirus (PCR) Influenza Type A (PCR) Influenza Type B (PCR) RSV RNA Qual (PCR) 05/21/21 14:03 MCV MCH MCHC RDW Plt Count MPV Immature Gran % (Auto) Neut % (Auto) Lymph % (Auto) [place] % (Auto) Eos % (Auto) Baso % (Auto) Lymph # (Auto) [place] # (Auto) Eos # (Auto) Baso # (Auto) Abs Immat Gran (auto) Absolute Neuts (auto) Absolute Nucleated RBC Nucleated RBC % (auto) Neutrophils % (Manual) Band Neutrophils % Lymphocytes % (Manual) Monocytes % (Manual) Abs Neuts (Manual) Lymphocytes # (Manual) Monocytes # (Manual) Toxic Vacuolation Platelet Estimate Plt Morphology Comment RBC Morphology Anion Gap Estim Creat Clear Calc Estimated GFR Random Glucose Lactic Acid Calcium Magnesium Total Bilirubin Direct Bilirubin AST ALT Alkaline Phosphatase B-Natriuretic Peptide Total Protein Albumin Procalcitonin Urine Color YELLOW Urine Appearance HAZY Urine pH 6.0 Ur Specific [place] 1.015 Urine Protein TRACE Urine Glucose (UA) NEG Urine Ketones NEG Urine Blood TRACE Urine Nitrite NEG Ur Leukocyte Esterase 2+ H Urine RBC 1-4 Urine WBC 5-9 H Ur Squamous Epith Cells 3+ Urine Bacteria 1+ Urine Mucus 1+ Coronavirus (PCR) Influenza Type A (PCR) Influenza Type B (PCR) RSV RNA Qual (PCR) ITS Impressions Chest X-Ray 05/21/21 11:58 IMPRESSION: Opacity overlying the right upper lung is concerning for right upper lobe pneumonia. Consider follow-up imaging after treatment. Chest CT 05/21/21 13:08 IMPRESSION: Right mediastinal and hilar lymphadenopathy/soft tissue mass causing narrowing of the right mainstem bronchus with what appears to be postobstructive pneumonitis. Significant centrilobular emphysema. Imaging Radiologist's Impressions: Impressions Chest X-Ray 05/21/21 11:58 IMPRESSION: Opacity overlying the right upper lung is concerning for right upper lobe pneumonia. Consider follow-up imaging after treatment. Chest CT 05/21/21 13:08 IMPRESSION: Right mediastinal and hilar lymphadenopathy/soft tissue mass causing narrowing of the right mainstem bronchus with what appears to be postobstructive pneumonitis. Significant centrilobular emphysema. Assessment and Plan (1) Pneumonia: Qualifiers: Laterality: right Pneumonia type: due to unspecified organism Status: Acute (2) Mediastinal mass: Status: Acute 75 yo woman with 20 pack-year history of smoking without diagnosis of chronic lung disease presents with cough and dypsnea, found to have large bulky mediastinal/hilar mass encasing the right mainstem bronchus with postobstructive pneumonia # mediastinal/hilar mass - admit to med/surg, consult Pulm for possible bronchoscopy, NPO after midnight, also consult Thoracic Surgery # sepsis due to postobstructive pneumonia - not severe; continue ABX treatment with ceftriaxone + doxycycline # OAB - continue Mybertiq # dyslipidemia - continue statin # anxiety - prn lorazepam # tobacco abuse - NRT # VTE ppx - SCDs; hold heparin in case of bronchoscopy # code - full Quality Stroke Does the patient have a stroke diagnosis?: No VTE Prior VTE?: No VTE Risk Level:: Medical - moderate - high VTE Device Contraindication: N/A - Device Ordered VTE Drug Contraindication: Treatment Not Indicated
[2021-05-21] MEDS: Nicotine 14 MG PATCH.TD24 TRANSDERMA (16:43)
[2021-05-21] MEDS: Doxycycline Hyclate 100 MG in 0.9 % Sodium Chloride 250 ML 166.67 MG IV (16:45)
[2021-05-21] MEDS: 0.9 % Sodium Chloride 1,000 ML 50 ML IVCONT (17:17)
--- NOTE | 2021-05-21 19:10 | PC.NURSE ---
nurse to nurse report given to Elaine JONES
[2021-05-21] MEDS: Albuterol/Iprat 2.5/0.5MG 3 ML AMPUL.NEB INHALE (20:19)
[2021-05-22] VITALS (10 sets, daily range): BP systolic 100–141; BP diastolic 56–71; PULSE 88–100; RESP 18–20; TEMP 36.2–37.6; O2SAT 95–98
[2021-05-22] MEDS: Doxycycline Hyclate 100 MG in 0.9 % Sodium Chloride 250 ML 166.67 MG IV ×2 (04:04→16:10)
[2021-05-22 07:12] LABS: MANUAL DIFF FLAG NO
[2021-05-22] MEDS: Albuterol/Iprat 2.5/0.5MG 3 ML AMPUL.NEB INHALE ×4 (07:27→20:13)
[2021-05-22 07:30] LABS: INTERNATIONAL NORM RATIO 1.6 (0.9-1.1); Prothrombin Time 18.8 SEC (9.9-13.0)
[2021-05-22 07:32] LABS: Basophils Absolute Auto 0.1 X10*3/uL (0.0-0.2); Basophils Percent Auto 0.3 % (0-2); Eosinophils Percent Auto 0.1 % (0-4); Hematocrit 33.7 % (37-47); Hemoglobin 10.6 g/dl (12.0-16.0); Imm Gran Abs Auto 0.11 X10*3/uL (0.00-0.03); Imm Gran Pct Auto 0.6 % (0.0-0.4); Lymphocytes Absolute Auto 1.7 X10*3/uL (1.2-4.9); Lymphocytes Percent Auto 9.5 % (20-40); Mean Corpuscular HGB Conc 31.5 g/dl (31.0-35.0); Mean Corpuscular Hemoglobin 26.2 pg (27.0-33.0); Mean Corpuscular Volume 83.2 fL (80-98); Mean Platelet Volume 9.1 fL (9.4-12.3); Monocytes Absolute Auto 1.2 X10*3/uL (0.1-1.2); Monocytes Percent Auto 6.6 % (2-11); Neutrophils Absolute Auto 14.8 X10*3/uL (2.0-8.3); Neutrophils Percent Auto 82.9 % (45-73); Platelet Count 212 X10*3/uL (160-400); Red Blood Count 4.05 X10*6/uL (4.20-5.50); Red Cell Distribution Width 14.8 % (11.0-16.0); White Blood Count 17.8 X10*3/uL (4.8-10.8)
[2021-05-22 07:52] LABS: Anion Gap 14 (12-20); Blood Urea Nitrogen 12 mg/dL (9-16); Calcium 8.6 mg/dL (8.4-10.2); Carbon Dioxide 23 mmol/L (22-29); Chloride 105 mmol/L (96-108); Creatinine Clr Calc Pharmacy 77.7; Estimated Glomerular Filt Rate > 60; Glucose Random 104 mg/dL (60-115); Potassium 4.1 mmol/L (3.3-5.1); Sodium 138 mmol/L (135-145)
[2021-05-22] MEDS: Calcium Carbonate 750 MG TAB.CHEW PO (09:20)
[2021-05-22] MEDS: 0.9 % Sodium Chloride Flush 3 ML SYRINGE IVFLUSH ×3 (09:20→23:23)
[2021-05-22] MEDS: Atorvastatin Calcium 10 MG TABLET PO (09:21)
[2021-05-22] MEDS: Nicotine 14 MG PATCH.TD24 TRANSDERMA (09:21)
[2021-05-22] MEDS: Mirabegron 25 MG TAB.ER.24H PO (09:34)
--- NOTE | 2021-05-22 09:36 | P.CONPL_ITS ---
History of Present Illness History of Present Illness Consult date: 05/22/21 Chief complaint: postostructive PNA, mediastinal mass Narrative: I have seen this patient this morning for pulmonary consultation. Reviewed the history with the patient, and reviewed lab and imaging. She is 75 years old, female a long-time smoker, comes with about 7-10 days history of cough mostly dry, without fever or chills, and without history of any contact with a sick person. She does have increased shortness of breath but denies wheezing attacks. Denies any recent weight loss. Has had no contact with COVID patients, she has had COVID-19 vaccine. Chest x-ray and CT scan of the chest or grossly abnormal as will be described below. Past medical history includes chronic anxiety, dyslipidemia, urge incontinence, and osteoarthritis of the hips. Patient has no diagnosis of chronic obstructive pulmonary disease so for. Review of Systems Review of Systems: Yes all other systems are reviewed and are negative Constitutional: Constitutional: Reports as per HPI Eyes: Eyes: Reports no additional eye complaints ENT: Reports system reviewed and no additional complaints, except as documen kirstie Cardiovascular: Cardiovascular: Reports no additional cardiovascular complaints Respiratory: Respiratory: Reports as per HPI Gastrointestinal: Gastrointestinal: Reports no additional gastrointestinal complaints Genitourinary: Genitourinary: Reports urinary incontinence Musculoskeletal: Musculoskeletal: Reports arthralgias (hips) Integumentary/Breasts: Skin/Breast: Reports system reviewed and no additional complaints, except as docu Neurologic: Reports system reviewed and no additional complaints, except as documented Psychiatric: Psychiatric: Reports anxiety Endocrine: Endocrine: Reports no additional endocrine complaints [facility] Past Medical History Medical History Anxiety Dyslipidemia Osteoarthritis of right hip Osteoporosis Smoker unmotivated to quit Tubular adenoma of colon Urge incontinence of urine Vaccination refused by patient Vitamin D deficiency Family History Family History Father Leukemia Mother Hip fracture Congestive heart failure Brother Bladder cancer Surgical History Surgical History History of colonoscopy Social History Social History Household Members: Spouse Housing: House Do you presently have visiting nurse or other home services: No Alcohol intake: never Patient Tobacco Use Status: Current everyday Tobacco user Tobacco use type: Cigarette Cigarette Packs Per Day: 1 Years Smoked: more than 50 years e-Cigarette/Vaping Use: Never Used Use of substances other than those prescribed or required for medical reasons: No Currently Displaying Signs/Symptoms of Drug Intoxication Withdrawal: No Have you been hit, kicked, punched, or otherwise hurt by someone within the past year? If so, by whom?: No Do you feel safe in your current relationship?: Yes Is there a partner from a previous relationship who is making you feel unsafe now?: No Are you made to feel afraid or neglected: No Advance Directives: No Advance Directives Information Provided: No Do you have thoughts of harming others: None Do you have a plan to hurt others: No Plan Recently lost weight without trying: No Nutrition Risks: No Nutritional Risk Meds Allergies Allergy/AdvReac Type Severity Reaction Status Date / Time No Known Allergies Allergy Verified 05/21/21 11:14 Active Medications: Current Medications Generic Name Dose Route Start Last Admin Trade Name Freq PRN Reason Stop Dose Admin Acetaminophen 650 mg 05/21/21 16:25 Acetaminophen 325 Mg Tablet PO Q6H PRN Pain, Mild (Pain Scale 1-3) Albuterol Sulfate 2.5 mg 05/21/21 16:30 Albuterol Sulfate (0.083%) 2.5 Mg/3 Ml Vial.Neb INHALE Q4H PRN shortness of breath/wheeze Albuterol/Ipratropium 3 ml 05/21/21 20:00 05/22/21 07:27 Albuterol/Iprat 2.5/0.5mg 3 Ml Ampul.Neb INHALE 3 ml RQ4H WHILE AWAKE [facility] Administration Atorvastatin Calcium 10 mg 05/22/21 09:00 05/22/21 09:21 Atorvastatin Calcium 10 Mg Tablet PO 10 mg DAILY [facility] Administration Calcium Carbonate 750 mg 05/22/21 09:00 05/22/21 09:20 Calcium Carbonate 750 Mg Tab.Chew PO 750 mg DAILY [facility] Administration Ceftriaxone Sodium 1 gm/ 50 mls @ 100 mls/hr 05/22/21 13:00 Sodium Chloride IV Q24H [facility] Doxycycline Hyclate 100 mg/ 250 mls @ 166.67 mls/hr 05/21/21 16:00 05/22/21 05:43 Sodium Chloride IV Infused Q12H [facility] Infusion Sodium Chloride 1,000 mls @ 50 mls/hr 05/21/21 16:45 05/21/21 17:17 Ns IVCONT 50 mls/hr .Q20H [facility] Administration Lorazepam 0.5 mg 05/21/21 16:19 Lorazepam 0.5 Mg Tablet PO DAILY PRN anxiety Mirabegron 25 mg 05/22/21 09:00 05/22/21 09:34 Mirabegron 25 Mg Tab.Er.24h PO 25 mg DAILY [facility] Administration Nicotine 14 mg 05/21/21 16:30 05/22/21 09:21 Nicotine 14 Mg Patch.Td24 TRANSDERMA 14 mg DAILY [facility] Administration Ondansetron HCl 4 mg 05/21/21 16:25 Ondansetron Hcl 4 Mg/2 Ml Vial IVPUSH Q8H PRN Nausea and Vomiting Pharmacy Consult 1 each 05/21/21 14:41 Consult Rx Perform Med Rec MISCELLANE ONCE PRN Consult order Sodium Chloride 3 ml 05/22/21 00:00 05/22/21 09:20 0.9 % Sodium Chloride Flush 3 Ml Syringe IVFLUSH 3 ml QSHIFT [facility] Administration Home Medications Medication Instructions Recorded Confirmed Last Taken Type calcium carbonate 320 mg calcium 650 mg PO DAILY 04/17/21 05/21/21 Unknown History (750 mg) chewable tablet (Calcium Antacid) Physical Exam Vital Signs: Vital Signs: Last Vital Signs Temp 98.0 F 05/22/21 07:08 Pulse 92 05/22/21 07:29 Resp 18 05/22/21 07:08 BP 131/58 L 05/22/21 07:08 Pulse Ox 95 05/22/21 07:08 Body Mass Index 28.7 Const: General: comfortable, no acute distress, alert and awake Orientation/consciousness: patient oriented x3 HENMT: Head: Yes normal to inspection General nose exam: No nasal polyps present and No nasal discharge present Face and sinus: Yes sinuses nontender Mouth: oropharynx normal Throat: Yes posterior oropharynx normal Eyes: General: appearance normal, both eyes and all related structures Neck: Neck: Yes normal visual inspection, Yes no lymphadenopathy, Yes trachea midline and Yes no JVD Thyroid: Thyroid normal Chest: Chest palpation & inspection: normal inspection of the chest, normal palpation of entire chest wall and no tenderness Resp: Other: She does have good breath sounds on both sides. Inspiratory crepitations heard over the right upper lobe, and also over the right mid chest. No wheezes or rhonchi are heard. Cardio: Palpation: normal PMI Rate: regular rate Rhythm: regular rhythm Heart sounds: no gallops and no murmurs GI: Palpation (GI): Soft to palpation, nontender, No hepatosplenomegaly present and no masses Auscultation: normal bowel sounds Back/Spine/Pelvis: Thoracic/Lumbar Spine: thoracic and lumbar spine normal to inspection Skin: General skin exam: no rashes or lesions noted Neuro: General: patient oriented x3 and no focal motor deficits Cranial nerves: Yes CN's II-XII intact bilaterally Extrem: General: Yes normal to inspection, Yes no clubbing, cyanosis or edema and Yes no calf tenderness Psych: Speech and movement: Normal speech and movement present Results Laboratory Findings CBC and BMP: 05/22/21 06:28 05/22/21 06:28 ABG, PT/INR, D-dimer: PT/INR, D-dimer PT 18.8 SEC (9.9-13.0) H 05/22/21 06:28 INR 1.6 (0.9-1.1) H 05/22/21 06:28 Abnormal lab findings: Abnormal Labs 05/21/21 05/21/21 05/21/21 11:45 12:35 14:03 WBC 17.5 H RBC Hgb Hct MCH 26.4 L MPV 8.3 L Immature Gran % (Auto) Neut % (Auto) Lymph % (Auto) Abs Immat Gran (auto) Absolute Neuts (auto) Neutrophils % (Manual) 81 H Band Neutrophils % 12 H Lymphocytes % (Manual) 3 L Abs Neuts (Manual) 16.3 H Lymphocytes # (Manual) 0.5 L PT INR Alkaline Phosphatase 125 H Ur Leukocyte Esterase 2+ H Urine WBC 5-9 H 05/22/21 05/22/21 06:28 06:28 WBC 17.8 H RBC 4.05 L Hgb 10.6 L Hct 33.7 L MCH 26.2 L MPV 9.1 L Immature Gran % (Auto) 0.6 H Neut % (Auto) 82.9 H Lymph % (Auto) 9.5 L Abs Immat Gran (auto) 0.11 H Absolute Neuts (auto) 14.8 H Neutrophils % (Manual) Band Neutrophils % Lymphocytes % (Manual) Abs Neuts (Manual) Lymphocytes # (Manual) PT 18.8 H INR 1.6 H Alkaline Phosphatase Ur Leukocyte Esterase Urine WBC Microbiology: Microbiology 05/21/21 00:00 Urine clean catch - Urine bravo top Urine Culture - Final Diagnostic Findings Chest x-ray: report reviewed CT scan - chest: report reviewed and image reviewed Assessment and Plan (1) Pneumonia: Qualifiers: Laterality: right Pneumonia type: due to unspecified organism Status: Acute She has extensive infiltrate in the right upper lobe, r most likely representing postobstructive pneumonia. Recommendation : Agree with the current antibiotics, including ceftriaxone and doxycycline. (2) Mediastinal mass: Status: Acute On the chest x-ray as well as on CT scan there is a large-sized right upper mediastinal mass along with mediastinal and hilar lymphadenopathy. There is evidence of compression on the right main bronchus. This picture is typical of a neoplastic process. Patient would undergo bronchoscopy, I have discussed with Dr. Tha Adames. And patient has been scheduled for bronchoscopy on 05/23 at 13:00 . (3) Smoker unmotivated to quit: Status: Acute Patient has long-standing history of smoking since age 19 , was down to half pack a day. She needs to quit smoking, likes the nicotine patch which has been started. Procedures Date of Service Date of Service: 05/22/21
--- NOTE | 2021-05-22 09:52 | PM.EVENT ---
Event Note Date of Service: 05/22/21 Event Note: Patient seen this morning for pulmonary consultation. History is reviewed and also lab and imaging is reviewed. Complete note is dictated. A: Right mediastinal/hilar mass. Pneumonia right upper lobe, postobstructive. P: Quit smoking Continue antibiotics, including Rocephin and doxycycline. Bronchoscopy planned for 05/23 at 13:00. Patient should be kept NPO from tomorrow morning.
--- NOTE | 2021-05-22 09:55 | PM.CNGS ---
History of Present Illness Consult details Consult date: 05/22/21 Reason for consult: other (Hilar mass) Narrative: Is a 75-year-old woman with a greater than 52-vdrp-uwsd smoking history who still currently smokes 1 pack/day who presented to ED with worsening shortness of breath and cough over the past 3 weeks. Upon arrival to ED a chest x-ray was performed which revealed a right upper pneumonia, a CT of the chest showed large bulky mediastinal and right hilar mass approximately 3.4 x 3.4 x 5.2, encasing the right mainstem bronchus with postobstructive pneumonia for which thoracic surgery was consulted for.. Found to have leukocytosis with WBC 17, placed on antibiotics ceftriaxone and doxycycline. Currently in no respiratory distress with oxygen saturations in the upper 90s on room air. Denies any concerning symptoms such as fever, hemoptysis, unintentional weight loss or night sweats. Patient admits to a 1 night episode of chills on Saturday before coming to the emergency department. Denies any shortness of breath at rest however does admit to some dyspnea on exertion. Review of Systems Review of Systems: Remaining 12 point review of systems negative. [facility] Past Medical History Medical History Anxiety Dyslipidemia Osteoarthritis of right hip Osteoporosis Smoker unmotivated to quit Tubular adenoma of colon Urge incontinence of urine Vaccination refused by patient Vitamin D deficiency Functional capacity: independent ambulation Patient : No Family History Family History Father Leukemia Mother Hip fracture Congestive heart failure Brother Bladder cancer Surgical History Surgical History History of colonoscopy Social History Social History Household Members: Spouse Housing: House Do you presently have visiting nurse or other home services: No Alcohol intake: never Patient Tobacco Use Status: Current everyday Tobacco user Tobacco use type: Cigarette Cigarette Packs Per Day: 1 Years Smoked: more than 50 years e-Cigarette/Vaping Use: Never Used Use of substances other than those prescribed or required for medical reasons: No Currently Displaying Signs/Symptoms of Drug Intoxication Withdrawal: No Have you been hit, kicked, punched, or otherwise hurt by someone within the past year? If so, by whom?: No Do you feel safe in your current relationship?: Yes Is there a partner from a previous relationship who is making you feel unsafe now?: No Are you made to feel afraid or neglected: No Advance Directives: No Advance Directives Information Provided: No Do you have thoughts of harming others: None Do you have a plan to hurt others: No Plan Recently lost weight without trying: No Nutrition Risks: No Nutritional Risk Patient : No service: No Current occupational status: retired [employer] Allergies Allergy/AdvReac Type Severity Reaction Status Date / Time No Known Allergies Allergy Verified 05/21/21 11:14 Active Medications: Current Medications Generic Name Dose Route Start Last Admin Trade Name Freq PRN Reason Stop Dose Admin Acetaminophen 650 mg 05/21/21 16:25 Acetaminophen 325 Mg Tablet PO Q6H PRN Pain, Mild (Pain Scale 1-3) Albuterol Sulfate 2.5 mg 05/21/21 16:30 Albuterol Sulfate (0.083%) 2.5 Mg/3 Ml Vial.Neb INHALE Q4H PRN shortness of breath/wheeze Albuterol/Ipratropium 3 ml 05/21/21 20:00 05/22/21 07:27 Albuterol/Iprat 2.5/0.5mg 3 Ml Ampul.Neb INHALE 3 ml RQ4H WHILE AWAKE GOYO Administration Atorvastatin Calcium 10 mg 05/22/21 09:00 05/22/21 09:21 Atorvastatin Calcium 10 Mg Tablet PO 10 mg DAILY GOYO Administration Calcium Carbonate 750 mg 05/22/21 09:00 05/22/21 09:20 Calcium Carbonate 750 Mg Tab.Chew PO 750 mg DAILY GOYO Administration Ceftriaxone Sodium 1 gm/ 50 mls @ 100 mls/hr 05/22/21 13:00 Sodium Chloride IV Q24H GOYO Doxycycline Hyclate 100 mg/ 250 mls @ 166.67 mls/hr 05/21/21 16:00 05/22/21 05:43 Sodium Chloride IV Infused Q12H GOYO Infusion Sodium Chloride 1,000 mls @ 50 mls/hr 05/21/21 16:45 05/21/21 17:17 Ns IVCONT 50 mls/hr .Q20H GOYO Administration Lorazepam 0.5 mg 05/21/21 16:19 Lorazepam 0.5 Mg Tablet PO DAILY PRN anxiety Mirabegron 25 mg 05/22/21 09:00 05/22/21 09:34 Mirabegron 25 Mg Tab.Er.24h PO 25 mg DAILY GOYO Administration Nicotine 14 mg 05/21/21 16:30 05/22/21 09:21 Nicotine 14 Mg Patch.Td24 TRANSDERMA 14 mg DAILY GOYO Administration Ondansetron HCl 4 mg 05/21/21 16:25 Ondansetron Hcl 4 Mg/2 Ml Vial IVPUSH Q8H PRN Nausea and Vomiting Pharmacy Consult 1 each 05/21/21 14:41 Consult Rx Perform Med Rec MISCELLANE ONCE PRN Consult order Sodium Chloride 3 ml 05/22/21 00:00 05/22/21 09:20 0.9 % Sodium Chloride Flush 3 Ml Syringe IVFLUSH 3 ml QSHIFT GOYO Administration Home Medications Medication Instructions Recorded Confirmed Last Taken Type calcium carbonate 320 mg calcium 650 mg PO DAILY 04/17/21 05/21/21 Unknown History (750 mg) chewable tablet (Calcium Antacid) Physical Exam Vital Signs: Vital Signs: Last Vital Signs Temp 98.0 F 05/22/21 07:08 Pulse 92 05/22/21 07:29 Resp 18 05/22/21 07:08 BP 131/58 L 05/22/21 07:08 Pulse Ox 95 05/22/21 07:08 Body Mass Index 28.7 Const: General: no acute distress Orientation/consciousness: patient oriented x3 HENMT: Head: Yes normal to inspection Eyes: General: appearance normal, both eyes and all related structures Conjunctivae: conjunctivae normal Sclerae: sclerae normal Neck: Neck: Yes trachea midline Chest: Chest palpation & inspection: normal inspection of the chest Resp: Other: Breath sounds clear to auscultation bilaterally with no adventitious sounds such as wheezes or rhonchi. Cardio: Jugular venous distension: no JVD Rate: regular rate Rhythm: regular rhythm Heart sounds: S1 normal heart sound present, S2 normal heart sound present, no gallops, no murmurs and no rubs GI: Inspection: Yes normal to inspection Palpation (GI): Soft to palpation and nontender Auscultation: normal bowel sounds Neuro: General: patient oriented x3 Results Labs Result diagrams: 05/22/21 06:28 05/22/21 06:28 Labs: Abnormal lab results 05/21/21 05/21/21 05/21/21 Range/Units 11:45 12:35 14:03 WBC 17.5 H (4.8-10.8) X10*3/uL RBC (4.20-5.50) X10*6/uL Hgb (12.0-16.0) g/dl Hct (37-47) % MCH 26.4 L (27.0-33.0) pg MPV 8.3 L (9.4-12.3) fL Immature Gran % (Auto) (0.0-0.4) % Neut % (Auto) (45-73) % Lymph % (Auto) (20-40) % Abs Immat Gran (auto) (0.00-0.03) X10*3/uL Absolute Neuts (auto) (2.0-8.3) X10*3/uL Neutrophils % (Manual) 81 H (45-73) % Band Neutrophils % 12 H (3-5) % Lymphocytes % (Manual) 3 L (20-40) % Abs Neuts (Manual) 16.3 H (2.2-7.9) X10*3/uL Lymphocytes # (Manual) 0.5 L (0.6-4.8) X10*3/uL PT (9.9-13.0) SEC INR (0.9-1.1) Alkaline Phosphatase 125 H (39-117) U/L Ur Leukocyte Esterase 2+ H (NEG) Urine WBC 5-9 H (0-4) /HPF 05/22/21 05/22/21 Range/Units 06:28 06:28 WBC 17.8 H (4.8-10.8) X10*3/uL RBC 4.05 L (4.20-5.50) X10*6/uL Hgb 10.6 L (12.0-16.0) g/dl Hct 33.7 L (37-47) % MCH 26.2 L (27.0-33.0) pg MPV 9.1 L (9.4-12.3) fL Immature Gran % (Auto) 0.6 H (0.0-0.4) % Neut % (Auto) 82.9 H (45-73) % Lymph % (Auto) 9.5 L (20-40) % Abs Immat Gran (auto) 0.11 H (0.00-0.03) X10*3/uL Absolute Neuts (auto) 14.8 H (2.0-8.3) X10*3/uL Neutrophils % (Manual) (45-73) % Band Neutrophils % (3-5) % Lymphocytes % (Manual) (20-40) % Abs Neuts (Manual) (2.2-7.9) X10*3/uL Lymphocytes # (Manual) (0.6-4.8) X10*3/uL PT 18.8 H (9.9-13.0) SEC INR 1.6 H (0.9-1.1) Alkaline Phosphatase (39-117) U/L Ur Leukocyte Esterase (NEG) Urine WBC (0-4) /HPF Short CBC 05/21/21 05/22/21 Range/Units 11:45 06:28 WBC 17.5 H 17.8 H (4.8-10.8) X10*3/uL Hgb 13.1 10.6 L (12.0-16.0) g/dl Hct 41.0 33.7 L (37-47) % Plt Count 263 212 (160-400) X10*3/uL BMP 05/21/21 05/22/21 12:35 06:28 Sodium 138 138 Potassium 4.2 4.1 Chloride 103 105 Carbon Dioxide 26 23 BUN 13 12 Creatinine 0.85 0.68 Calcium 9.6 8.6 D Liver Function 05/21/21 Range/Units 12:35 Total Bilirubin 0.5 (0.0-1.0) mg/dL Direct Bilirubin 0.2 (0.0-0.5) mg/dL AST 11 (5-31) U/L ALT 9 (0-31) U/L Alkaline Phosphatase 125 H (39-117) U/L Albumin 4.1 (3.5-5.0) g/dL Urine 05/21/21 Range/Units 14:03 Urine Color YELLOW Urine Appearance HAZY Urine pH 6.0 (5.0-8.0) Ur Specific [place] 1.015 (1.005-1.025) Urine Protein TRACE (NEG-TRACE) MG/DL Urine Glucose (UA) NEG (NEG) MG/DL All other labs normal. Imaging CT scan - chest: report reviewed and image reviewed Assessment and Plan (1) Mediastinal mass: Status: Acute (2) Pneumonia: Qualifiers: Laterality: right Pneumonia type: due to unspecified organism Status: Acute Patient is a 75-year-old current and lifelong smoker with a greater than 14-kbws-heib history who presents to the emergency department for worsening shortness of breath and cough, subsequently found to have postobstructive pneumonia secondary to a right mediastinal and hilar mass encompassing right main stem bronchus. Thoracic surgical intervention required at this time. Patient scheduled for diagnostic and therapeutic bronchoscopy tomorrow morning with pulmonary. Right upper lobe pneumonia being managed by medicine team. Recommend continue antibiotics. Recommend incentive spirometry and flutter valve device. Patient should be OOB in chair for all meals. Patient should ambulate in hallway minimum 3-4 times per day to promote lung expansion. This case was discussed with Dr.Laki Julio. If you have any questions or concerns please not hesitate to contact the thoracic surgical department. Thoracic surgery will be signing off at this time. Dependent on bronchoscopy diagnostical results would recomend referring patient to thoracic surgical department as an outpatient basis for further consultation. Procedures Date of Service Date of Service: 05/22/21
--- NOTE | 2021-05-22 09:57 | MHC.CM.PN ---
PATIENT LIVES WITH HER HCP/SPOUSE. COPY REQUESTED FOR MEDICAL CHART. SHE IS INDEPENDENT WITH ALL ADLS, INCLUDING TRANSPORTATION. NO DME OR VNA SERVICES IN THE HOME. SHE IS HOPING TO BE ABLE TO RETURN HOME WITH NO SERVICES. FRANKLIN DISCUSSED AND SIGNED ORIGINAL WITH PATIENT. IMM 05/22 COPY IN CHART.
--- NOTE | 2021-05-22 11:45 | PC.NURSE ---
Spoke with surgery concerning surgery for patient, order had today's date, clarification surgery is tomorrow.
[2021-05-22] MEDS: LORazepam 0.5 MG TABLET PO (11:48)
--- NOTE | 2021-05-22 13:24 | HO.PM.IMPN ---
Subjective Subjective Date of Service: 05/22/21 Interval History: The patient was seen and evaluated this morning Laying in bed, feels comfortable overall Weaned off the oxygen Denies any fever, chills or shortness of breath No reported other overnight events. Systemic review: No fever, chills or weakness No chest pain, palpitation Coughing and dyspnea on exertion No abdominal pain, nausea or vomiting No urinary symptoms No any rash or wounds Physical Exam Vital Signs: Vital Signs: Last Vital Signs Temp 97.2 F 05/22/21 11:40 Pulse 96 05/22/21 11:40 Resp 20 05/22/21 11:40 BP 100/57 L 05/22/21 11:40 Pulse Ox 95 05/22/21 11:40 Body Mass Index 28.7 Const: Other: Constitutional : Alert, oriented, not in distress Neck : Normal inspection, Supple Cardiovascular : RRR, S1 S2, no lower extremity edema Respiratory : Decreased air entry on the right side with significant crackles and rhonchi, fair entry on the left side Gastrointestinal: soft, lax, Normal bowel sounds, Non tender Skin : Warm, Dry Neurological : Alert & oriented x3, No focal deficit Objective Data Current Medications Generic Name Dose Route Start Last Admin Trade Name Freq PRN Reason Stop Dose Admin Acetaminophen 650 mg 05/21/21 16:25 Acetaminophen 325 Mg Tablet PO Q6H PRN Pain, Mild (Pain Scale 1-3) Albuterol Sulfate 2.5 mg 05/21/21 16:30 Albuterol Sulfate (0.083%) 2.5 Mg/3 Ml Vial.Neb INHALE Q4H PRN shortness of breath/wheeze Albuterol/Ipratropium 3 ml 05/21/21 20:00 05/22/21 11:19 Albuterol/Iprat 2.5/0.5mg 3 Ml Ampul.Neb INHALE 3 ml RQ4H WHILE AWAKE GOYO Administration Atorvastatin Calcium 10 mg 05/22/21 09:00 05/22/21 09:21 Atorvastatin Calcium 10 Mg Tablet PO 10 mg DAILY GOYO Administration Calcium Carbonate 750 mg 05/22/21 09:00 05/22/21 09:20 Calcium Carbonate 750 Mg Tab.Chew PO 750 mg DAILY GOYO Administration Ceftriaxone Sodium 1 gm/ 50 mls @ 100 mls/hr 05/22/21 13:00 Sodium Chloride IV Q24H GOYO Doxycycline Hyclate 100 mg/ 250 mls @ 166.67 mls/hr 05/21/21 16:00 05/22/21 05:43 Sodium Chloride IV Infused Q12H GOYO Infusion Sodium Chloride 1,000 mls @ 50 mls/hr 05/21/21 16:45 05/21/21 17:17 Ns IVCONT 50 mls/hr .Q20H GOYO Administration Lorazepam 0.5 mg 05/21/21 16:19 05/22/21 11:48 Lorazepam 0.5 Mg Tablet PO 0.5 mg DAILY PRN Administration anxiety Mirabegron 25 mg 05/22/21 09:00 05/22/21 09:34 Mirabegron 25 Mg Tab.Er.24h PO 25 mg DAILY GOYO Administration Nicotine 14 mg 05/21/21 16:30 05/22/21 09:21 Nicotine 14 Mg Patch.Td24 TRANSDERMA 14 mg DAILY GOYO Administration Ondansetron HCl 4 mg 05/21/21 16:25 Ondansetron Hcl 4 Mg/2 Ml Vial IVPUSH Q8H PRN Nausea and Vomiting Pharmacy Consult 1 each 05/21/21 14:41 Consult Rx Perform Med Rec MISCELLANE ONCE PRN Consult order Sodium Chloride 3 ml 05/22/21 00:00 05/22/21 09:20 0.9 % Sodium Chloride Flush 3 Ml Syringe IVFLUSH 3 ml QSHIFT GOYO Administration Labs CBC & Chem 7: 05/22/21 06:28 05/22/21 06:28 Labs: Laboratory Results - last 24 hr 05/21/21 05/21/21 05/21/21 12:35 13:49 14:03 MCV MCH MCHC RDW Plt Count MPV Immature Gran % (Auto) Neut % (Auto) Lymph % (Auto) [place] % (Auto) Eos % (Auto) Baso % (Auto) Lymph # (Auto) [place] # (Auto) Eos # (Auto) Baso # (Auto) Abs Immat Gran (auto) Absolute Neuts (auto) Absolute Nucleated RBC Nucleated RBC % (auto) PT INR Anion Gap Estim Creat Clear Calc Estimated GFR Random Glucose Lactic Acid 1.7 Calcium Procalcitonin 0.29 Urine Color YELLOW Urine Appearance HAZY Urine pH 6.0 Ur Specific [place] 1.015 Urine Protein TRACE Urine Glucose (UA) NEG Urine Ketones NEG Urine Blood TRACE Urine Nitrite NEG Ur Leukocyte Esterase 2+ H Urine RBC 1-4 Urine WBC 5-9 H Ur Squamous Epith Cells 3+ Urine Bacteria 1+ Urine Mucus 1+ 05/22/21 05/22/21 05/22/21 06:28 06:28 06:28 MCV 83.2 MCH 26.2 L MCHC 31.5 RDW 14.8 Plt Count 212 MPV 9.1 L Immature Gran % (Auto) 0.6 H Neut % (Auto) 82.9 H Lymph % (Auto) 9.5 L [place] % (Auto) 6.6 Eos % (Auto) 0.1 Baso % (Auto) 0.3 Lymph # (Auto) 1.7 [place] # (Auto) 1.2 Eos # (Auto) 0.0 Baso # (Auto) 0.1 Abs Immat Gran (auto) 0.11 H Absolute Neuts (auto) 14.8 H Absolute Nucleated RBC 0.000 Nucleated RBC % (auto) 0.0 PT 18.8 H INR 1.6 H Anion Gap 14 Estim Creat Clear Calc 77.7 Estimated GFR > 60 Random Glucose 104 Lactic Acid Calcium 8.6 D Procalcitonin Urine Color Urine Appearance Urine pH Ur Specific [place] Urine Protein Urine Glucose (UA) Urine Ketones Urine Blood Urine Nitrite Ur Leukocyte Esterase Urine RBC Urine WBC Ur Squamous Epith Cells Urine Bacteria Urine Mucus Microbiology Microbiology Results: Microbiology 05/21/21 00:00 Urine Culture - Final Urine clean catch - Urine bravo top Assessment and Plan (1) Pneumonia: Status: Acute (2) Mediastinal mass: Status: Acute Assessment and Plan: 75 yo woman with 20 pack-year history of smoking without diagnosis of chronic lung disease presents with cough and dypsnea, found to have large bulky mediastinal/hilar mass encasing the right mainstem bronchus with postobstructive pneumonia # sepsis due to postobstructive pneumonia Sepsis resolved Pending blood cultures Continue ceftriaxone + doxycycline # mediastinal/hilar mass Pulmonology input appreciated, for tomorrow bronchoscopy NPO after midnight Thoracic Surgery consult # Elevated INR INR 1.6, not due to severe sepsis # OAB continue Mybertiq # dyslipidemia continue statin # anxiety prn lorazepam # tobacco abuse NRT # VTE ppx SCDs; hold heparin in case of bronchoscopy Quality Stroke Does the patient have a stroke diagnosis?: No VTE Prior VTE?: No VTE Risk Level:: Medical - moderate - high VTE Device Contraindication: N/A - Device Ordered VTE Drug Contraindication: Treatment Not Indicated
[2021-05-22] MEDS: cefTRIAXone sodium 1 GM in 0.9 % Sodium Chloride 50 ML IV (13:42)
[2021-05-23] VITALS (17 sets, daily range): BP systolic 105–151; BP diastolic 56–77; PULSE 81–102; RESP 16–24; TEMP 36.1–37.1; O2SAT 92–100
[2021-05-23] MEDS: Doxycycline Hyclate 100 MG in 0.9 % Sodium Chloride 250 ML 166.67 MG IV ×2 (03:20→16:50)
[2021-05-23 06:12] LABS: Hematocrit 31.9 % (37-47); Hemoglobin 10.1 g/dl (12.0-16.0); Mean Corpuscular HGB Conc 31.7 g/dl (31.0-35.0); Mean Corpuscular Hemoglobin 26.4 pg (27.0-33.0); Mean Corpuscular Volume 83.3 fL (80-98); Mean Platelet Volume 9.2 fL (9.4-12.3); Platelet Count 204 X10*3/uL (160-400); Red Blood Count 3.83 X10*6/uL (4.20-5.50); Red Cell Distribution Width 14.9 % (11.0-16.0)
[2021-05-23 06:32] LABS: Anion Gap 10 (12-20); Blood Urea Nitrogen 12 mg/dL (9-16); Calcium 8.6 mg/dL (8.4-10.2); Carbon Dioxide 24 mmol/L (22-29); Chloride 107 mmol/L (96-108); Creatinine Clr Calc Pharmacy 88.1; Estimated Glomerular Filt Rate > 60; Glucose Random 102 mg/dL (60-115); Sodium 137 mmol/L (135-145)
[2021-05-23] MEDS: Mirabegron 25 MG TAB.ER.24H PO (08:50)
[2021-05-23] MEDS: Atorvastatin Calcium 10 MG TABLET PO (08:50)
[2021-05-23] MEDS: 0.9 % Sodium Chloride Flush 3 ML SYRINGE IVFLUSH ×2 (08:51→16:51)
[2021-05-23] MEDS: Nicotine 14 MG PATCH.TD24 TRANSDERMA (08:51)
[2021-05-23] MEDS: Albuterol/Iprat 2.5/0.5MG 3 ML AMPUL.NEB INHALE ×3 (09:06→14:46)
--- NOTE | 2021-05-23 09:28 | PC.NURSE ---
Skin assessment completed today. No skin issues noted at this time. Skin is very clean and supple. Feet and heels are good.
[2021-05-23] MEDS: LORazepam 0.5 MG TABLET PO (11:29)
--- NOTE | 2021-05-23 11:53 | HO.PM.IMPN ---
Subjective Subjective Date of Service: 05/23/21 Interval History: The patient was seen and evaluated this morning Laying in bed, feels comfortable overall Plan for bronchoscopy today Denies any fever, chills or shortness of breath No reported other overnight events. Systemic review: No fever, chills or weakness No chest pain, palpitation Coughing and dyspnea on exertion No abdominal pain, nausea or vomiting No urinary symptoms No any rash or wounds Physical Exam Vital Signs: Vital Signs: Last Vital Signs Temp 97.9 F 05/23/21 11:16 Pulse 87 05/23/21 11:16 Resp 16 05/23/21 11:16 BP 126/70 05/23/21 11:16 Pulse Ox 98 05/23/21 11:16 Body Mass Index 28.7 Const: Other: Constitutional : Alert, oriented, not in distress Neck : Normal inspection, Supple Cardiovascular : RRR, S1 S2, no lower extremity edema Respiratory : Decreased air entry on the right side with improved crackles and rhonchi, fair entry on the left side Gastrointestinal: soft, lax, Normal bowel sounds, Non tender Skin : Warm, Dry Neurological : Alert & oriented x3, No focal deficit Objective Data Current Medications Generic Name Dose Route Start Last Admin Trade Name Freq PRN Reason Stop Dose Admin Acetaminophen 650 mg 05/21/21 16:25 Acetaminophen 325 Mg Tablet PO Q6H PRN Pain, Mild (Pain Scale 1-3) Albuterol Sulfate 2.5 mg 05/21/21 16:30 Albuterol Sulfate (0.083%) 2.5 Mg/3 Ml Vial.Neb INHALE Q4H PRN shortness of breath/wheeze Albuterol/Ipratropium 3 ml 05/21/21 20:00 05/23/21 09:06 Albuterol/Iprat 2.5/0.5mg 3 Ml Ampul.Neb INHALE 3 ml RQ4H WHILE AWAKE GOYO Administration Atorvastatin Calcium 10 mg 05/22/21 09:00 05/23/21 08:50 Atorvastatin Calcium 10 Mg Tablet PO 10 mg DAILY GOYO Administration Calcium Carbonate 750 mg 05/22/21 09:00 05/23/21 08:50 Calcium Carbonate 750 Mg Tab.Chew PO Not Given DAILY GOYO Ceftriaxone Sodium 1 gm/ 50 mls @ 100 mls/hr 05/22/21 13:00 05/22/21 14:40 Sodium Chloride IV Infused Q24H GOYO Infusion Doxycycline Hyclate 100 mg/ 250 mls @ 166.67 mls/hr 05/21/21 16:00 05/23/21 05:07 Sodium Chloride IV Infused Q12H GOYO Infusion Lorazepam 0.5 mg 05/21/21 16:19 05/23/21 11:29 Lorazepam 0.5 Mg Tablet PO 0.5 mg DAILY PRN Administration anxiety Mirabegron 25 mg 05/22/21 09:00 05/23/21 08:50 Mirabegron 25 Mg Tab.Er.24h PO 25 mg DAILY GOYO Administration Nicotine 14 mg 05/21/21 16:30 05/23/21 08:51 Nicotine 14 Mg Patch.Td24 TRANSDERMA 14 mg DAILY GOYO Administration Ondansetron HCl 4 mg 05/21/21 16:25 Ondansetron Hcl 4 Mg/2 Ml Vial IVPUSH Q8H PRN Nausea and Vomiting Pharmacy Consult 1 each 05/21/21 14:41 Consult Rx Perform Med Rec MISCELLANE ONCE PRN Consult order Sodium Chloride 3 ml 05/22/21 00:00 05/23/21 08:51 0.9 % Sodium Chloride Flush 3 Ml Syringe IVFLUSH 3 ml QSHIFT GOYO Administration Labs CBC & Chem 7: 05/23/21 05:37 05/23/21 05:37 Labs: Laboratory Results - last 24 hr 05/23/21 05/23/21 05:37 05:37 MCV 83.3 MCH 26.4 L MCHC 31.7 RDW 14.9 Plt Count 204 MPV 9.2 L Absolute Nucleated RBC 0.000 Nucleated RBC % (auto) 0.0 Anion Gap 10 L Estim Creat Clear Calc 88.1 Estimated GFR > 60 Random Glucose 102 Calcium 8.6 Microbiology Microbiology Results: Microbiology 05/21/21 14:03 Blood Culture - Preliminary Blood - Venous No growth after 24 hours. 05/21/21 13:49 Blood Culture - Preliminary Blood - Venous No growth after 24 hours. 05/21/21 00:00 Urine Culture - Final Urine clean catch - Urine bravo top Assessment and Plan (1) Pneumonia: Status: Acute (2) Mediastinal mass: Status: Acute Assessment and Plan: 75 yo woman with 20 pack-year history of smoking without diagnosis of chronic lung disease presents with cough and dypsnea, found to have large bulky mediastinal/hilar mass encasing the right mainstem bronchus with postobstructive pneumonia # sepsis due to postobstructive pneumonia Sepsis resolved Pending blood cultures Continue ceftriaxone + doxycycline # mediastinal/hilar mass Pulmonology input appreciated, for bronchoscopy Thoracic Surgery consulted, no surgical intervention needed at this time # Elevated INR INR 1.6, not due to severe sepsis # OAB continue Mybertiq # dyslipidemia continue statin # anxiety prn lorazepam # tobacco abuse NRT # VTE ppx SCDs; hold heparin pending bronchoscopy Quality Stroke Does the patient have a stroke diagnosis?: No VTE Prior VTE?: No VTE Risk Level:: Medical - moderate - high VTE Device Contraindication: N/A - Device Ordered VTE Drug Contraindication: Treatment Not Indicated
--- NOTE | 2021-05-23 12:07 | MHC.SHP ---
Pre-Procedural Eval Section A Date of Service: 05/23/21 The patient is an INPATIENT: Yes Section B Chief Complaint: postostructive PNA, mediastinal mass Allergies: Allergies Allergy/AdvReac Type Severity Reaction Status Date / Time No Known Allergies Allergy Verified 05/21/21 11:14 Plan I have reviewed the history and physical and performed a pertinent physical examination on my patient. No changes have occurred unless specified.
--- NOTE | 2021-05-23 12:08 | P.BOP_ITS ---
Brief Operative Note Date of Service: 05/23/21 Surgeon: Tha Adames MD Was an Patient Financial Services Manager used for this Procedure?: No Estimated blood loss (mL): 5
--- NOTE | 2021-05-23 12:45 | HO.ANESPROP2 ---
HPI - Anesthesia Eval Consult details Narrative: 75-year-old female with mediastinal mass presenting for bronchoscopy with biopsies PMFSH Active Problems Active Problems: All Active Problems (Updated 05/21/21 @ 15:09 by JESSE Reym) Pneumonia (Acute) Mediastinal mass (Acute) Vitamin D deficiency (Acute) Osteoporosis (Acute) Anxiety (Acute) Overactive bladder (Acute) Osteoarthritis of right hip (Acute) Smoker unmotivated to quit (Acute) Vaccination refused by patient (Acute) Tubular adenoma of colon (Acute) Urge incontinence of urine (Acute) Dyslipidemia (Acute) Past Medical History Medical History Anxiety Dyslipidemia Osteoarthritis of right hip Osteoporosis Smoker unmotivated to quit Tubular adenoma of colon Urge incontinence of urine Vaccination refused by patient Vitamin D deficiency Functional capacity: independent ambulation Family History Family History Father Leukemia Mother Hip fracture Congestive heart failure Brother Bladder cancer Family history of problems with anesthesia: No Surgical History Surgical History History of colonoscopy History of Problems with Anesthesia: No Social History Social History Household Members: Spouse Housing: House Do you presently have visiting nurse or other home services: No Alcohol intake: never Patient Tobacco Use Status: Current everyday Tobacco user Tobacco use type: Cigarette Cigarette Packs Per Day: 1 Cigarettes Per Day: 15 Years Smoked: 56 Smoked in Last 30 Days: Yes e-Cigarette/Vaping Use: Never Used Use of substances other than those prescribed or required for medical reasons: No Currently Displaying Signs/Symptoms of Drug Intoxication Withdrawal: No Have you been hit, kicked, punched, or otherwise hurt by someone within the past year? If so, by whom?: No Do you feel safe in your current relationship?: Yes Is there a partner from a previous relationship who is making you feel unsafe now?: No Are you made to feel afraid or neglected: No Are you DNR?: No Advance Directives: No Advance Directives Information Provided: No Do you have thoughts of harming others: None Do you have a plan to hurt others: No Plan Recently lost weight without trying: No Nutrition Risks: No Nutritional Risk Patient : No service: No Current occupational status: retired [employer] Allergies Allergy/AdvReac Type Severity Reaction Status Date / Time No Known Allergies Allergy Verified 05/21/21 11:14 Active Medications: Current Medications Generic Name Dose Route Start Last Admin Trade Name Freq PRN Reason Stop Dose Admin Acetaminophen 650 mg 05/21/21 16:25 Acetaminophen 325 Mg Tablet PO Q6H PRN Pain, Mild (Pain Scale 1-3) Albuterol Sulfate 2.5 mg 05/21/21 16:30 Albuterol Sulfate (0.083%) 2.5 Mg/3 Ml Vial.Neb INHALE Q4H PRN shortness of breath/wheeze Albuterol/Ipratropium 3 ml 05/21/21 20:00 05/23/21 11:58 Albuterol/Iprat 2.5/0.5mg 3 Ml Ampul.Neb INHALE 3 ml RQ4H WHILE AWAKE GOYO Administration Atorvastatin Calcium 10 mg 05/22/21 09:00 05/23/21 08:50 Atorvastatin Calcium 10 Mg Tablet PO 10 mg DAILY GOYO Administration Calcium Carbonate 750 mg 05/22/21 09:00 05/23/21 08:50 Calcium Carbonate 750 Mg Tab.Chew PO Not Given DAILY GOYO Ceftriaxone Sodium 1 gm/ 50 mls @ 100 mls/hr 05/22/21 13:00 05/22/21 14:40 Sodium Chloride IV Infused Q24H GOYO Infusion Doxycycline Hyclate 100 mg/ 250 mls @ 166.67 mls/hr 05/21/21 16:00 05/23/21 05:07 Sodium Chloride IV Infused Q12H [facility] Infusion Lorazepam 0.5 mg 05/21/21 16:19 05/23/21 11:29 Lorazepam 0.5 Mg Tablet PO 0.5 mg DAILY PRN Administration anxiety Mirabegron 25 mg 05/22/21 09:00 05/23/21 08:50 Mirabegron 25 Mg Tab.Er.24h PO 25 mg DAILY GOYO Administration Nicotine 14 mg 05/21/21 16:30 05/23/21 08:51 Nicotine 14 Mg Patch.Td24 TRANSDERMA 14 mg DAILY GOYO Administration Ondansetron HCl 4 mg 05/21/21 16:25 Ondansetron Hcl 4 Mg/2 Ml Vial IVPUSH Q8H PRN Nausea and Vomiting Pharmacy Consult 1 each 05/21/21 14:41 Consult Rx Perform Med Rec MISCELLANE ONCE PRN Consult order Sodium Chloride 3 ml 05/22/21 00:00 05/23/21 08:51 0.9 % Sodium Chloride Flush 3 Ml Syringe IVFLUSH 3 ml QSHIFT [facility] Administration Home Medications Medication Instructions Recorded Confirmed Last Taken Type calcium carbonate 320 mg calcium 650 mg PO DAILY 04/17/21 05/21/21 Unknown History (750 mg) chewable tablet (Calcium Antacid) Exam Exam Date and Time: May 23, 2021 1245 Height,Weight and Vital Signs: Height 5 ft 6 in Weight 178 lb Last Vital Signs Temp 97.8 F 05/23/21 12:26 Pulse 97 05/23/21 12:26 Resp 16 05/23/21 12:26 BP 113/56 L 05/23/21 12:26 Pulse Ox 96 05/23/21 12:26 Pertinent Lab Results Pertinent Lab Results: Laboratory Tests 05/21/21 05/21/21 05/21/21 11:20 11:45 11:45 WBC 17.5 H RBC 4.96 Hgb 13.1 Hct 41.0 MCV 82.7 MCH 26.4 L MCHC 32.0 RDW 14.6 Plt Count 263 MPV 8.3 L Immature Gran % (Auto) Cancelled Neut % (Auto) Cancelled Lymph % (Auto) Cancelled [place] % (Auto) Cancelled Eos % (Auto) Cancelled Baso % (Auto) Cancelled Lymph # (Auto) Cancelled [place] # (Auto) Cancelled Eos # (Auto) Cancelled Baso # (Auto) Cancelled Abs Immat Gran (auto) Cancelled Absolute Neuts (auto) Cancelled Absolute Nucleated RBC 0.000 Nucleated RBC % (auto) 0.0 Neutrophils % (Manual) 81 H Band Neutrophils % 12 H Lymphocytes % (Manual) 3 L Monocytes % (Manual) 4 Abs Neuts (Manual) 16.3 H Lymphocytes # (Manual) 0.5 L Monocytes # (Manual) 0.7 Toxic Vacuolation PRESENT Platelet Estimate NORMAL Plt Morphology Comment NORMAL RBC Morphology NORMAL PT INR Sodium Potassium Chloride Carbon Dioxide Anion Gap BUN Creatinine Estim Creat Clear Calc Estimated GFR Random Glucose Lactic Acid Calcium Magnesium Total Bilirubin Direct Bilirubin AST ALT Alkaline Phosphatase B-Natriuretic Peptide 13 Total Protein Albumin Procalcitonin Urine Color Urine Appearance Urine pH Ur Specific [place] Urine Protein Urine Glucose (UA) Urine Ketones Urine Blood Urine Nitrite Ur Leukocyte Esterase Urine RBC Urine WBC Ur Squamous Epith Cells Urine Bacteria Urine Mucus Coronavirus (PCR) NEGATIVE Influenza Type A (PCR) NEGATIVE Influenza Type B (PCR) NEGATIVE RSV RNA Qual (PCR) NEGATIVE 05/21/21 05/21/21 05/21/21 12:35 12:35 13:49 WBC RBC Hgb Hct MCV MCH MCHC RDW Plt Count MPV Immature Gran % (Auto) Neut % (Auto) Lymph % (Auto) [place] % (Auto) Eos % (Auto) Baso % (Auto) Lymph # (Auto) [place] # (Auto) Eos # (Auto) Baso # (Auto) Abs Immat Gran (auto) Absolute Neuts (auto) Absolute Nucleated RBC Nucleated RBC % (auto) Neutrophils % (Manual) Band Neutrophils % Lymphocytes % (Manual) Monocytes % (Manual) Abs Neuts (Manual) Lymphocytes # (Manual) Monocytes # (Manual) Toxic Vacuolation Platelet Estimate Plt Morphology Comment RBC Morphology PT INR Sodium 138 Potassium 4.2 Chloride 103 Carbon Dioxide 26 Anion Gap 13 BUN 13 Creatinine 0.85 Estim Creat Clear Calc 62.1 Estimated GFR > 60 Random Glucose 100 Lactic Acid 1.7 Calcium 9.6 Magnesium 1.7 Total Bilirubin 0.5 Direct Bilirubin 0.2 AST 11 ALT 9 Alkaline Phosphatase 125 H B-Natriuretic Peptide Total Protein 7.0 Albumin 4.1 Procalcitonin 0.29 Urine Color Urine Appearance Urine pH Ur Specific [place] Urine Protein Urine Glucose (UA) Urine Ketones Urine Blood Urine Nitrite Ur Leukocyte Esterase Urine RBC Urine WBC Ur Squamous Epith Cells Urine Bacteria Urine Mucus Coronavirus (PCR) Influenza Type A (PCR) Influenza Type B (PCR) RSV RNA Qual (PCR) 05/21/21 05/22/21 05/22/21 14:03 06:28 06:28 WBC 17.8 H RBC 4.05 L Hgb 10.6 L Hct 33.7 L MCV 83.2 MCH 26.2 L MCHC 31.5 RDW 14.8 Plt Count 212 MPV 9.1 L Immature Gran % (Auto) 0.6 H Neut % (Auto) 82.9 H Lymph % (Auto) 9.5 L [place] % (Auto) 6.6 Eos % (Auto) 0.1 Baso % (Auto) 0.3 Lymph # (Auto) 1.7 Meade # (Auto) 1.2 Eos # (Auto) 0.0 Baso # (Auto) 0.1 Abs Immat Gran (auto) 0.11 H Absolute Neuts (auto) 14.8 H Absolute Nucleated RBC 0.000 Nucleated RBC % (auto) 0.0 Neutrophils % (Manual) Band Neutrophils % Lymphocytes % (Manual) Monocytes % (Manual) Abs Neuts (Manual) Lymphocytes # (Manual) Monocytes # (Manual) Toxic Vacuolation Platelet Estimate Plt Morphology Comment RBC Morphology PT 18.8 H INR 1.6 H Sodium Potassium Chloride Carbon Dioxide Anion Gap BUN Creatinine Estim Creat Clear Calc Estimated GFR Random Glucose Lactic Acid Calcium Magnesium Total Bilirubin Direct Bilirubin AST ALT Alkaline Phosphatase B-Natriuretic Peptide Total Protein Albumin Procalcitonin Urine Color YELLOW Urine Appearance HAZY Urine pH 6.0 Ur Specific [place] 1.015 Urine Protein TRACE Urine Glucose (UA) NEG Urine Ketones NEG Urine Blood TRACE Urine Nitrite NEG Ur Leukocyte Esterase 2+ H Urine RBC 1-4 Urine WBC 5-9 H Ur Squamous Epith Cells 3+ Urine Bacteria 1+ Urine Mucus 1+ Coronavirus (PCR) Influenza Type A (PCR) Influenza Type B (PCR) RSV RNA Qual (PCR) 05/22/21 05/23/21 05/23/21 06:28 05:37 05:37 WBC 11.0 H RBC 3.83 L Hgb 10.1 L Hct 31.9 L MCV 83.3 MCH 26.4 L MCHC 31.7 RDW 14.9 Plt Count 204 MPV 9.2 L Immature Gran % (Auto) Neut % (Auto) Lymph % (Auto) [place] % (Auto) Eos % (Auto) Baso % (Auto) Lymph # (Auto) [place] # (Auto) Eos # (Auto) Baso # (Auto) Abs Immat Gran (auto) Absolute Neuts (auto) Absolute Nucleated RBC 0.000 Nucleated RBC % (auto) 0.0 Neutrophils % (Manual) Band Neutrophils % Lymphocytes % (Manual) Monocytes % (Manual) Abs Neuts (Manual) Lymphocytes # (Manual) Monocytes # (Manual) Toxic Vacuolation Platelet Estimate Plt Morphology Comment RBC Morphology PT INR Sodium 138 137 Potassium 4.1 4.0 Chloride 105 107 Carbon Dioxide 23 24 Anion Gap 14 10 L BUN 12 12 Creatinine 0.68 0.60 Estim Creat Clear Calc 77.7 88.1 Estimated GFR > 60 > 60 Random Glucose 104 102 Lactic Acid Calcium 8.6 D 8.6 Magnesium Total Bilirubin Direct Bilirubin AST ALT Alkaline Phosphatase B-Natriuretic Peptide Total Protein Albumin Procalcitonin Urine Color Urine Appearance Urine pH Ur Specific [place] Urine Protein Urine Glucose (UA) Urine Ketones Urine Blood Urine Nitrite Ur Leukocyte Esterase Urine RBC Urine WBC Ur Squamous Epith Cells Urine Bacteria Urine Mucus Coronavirus (PCR) Influenza Type A (PCR) Influenza Type B (PCR) RSV RNA Qual (PCR) Airway Mallampati Class: III TM Dist: >3cm Neck ROM: Full Partial: Upper and Lower Adult Head Mouth w/Numbe Teeth: 1. Loose crown Assessment and Plan Assessment Anesthesia Assessment: Anesthesia Plan Discussed Final Anesthetic Review Family History of Problems with Anesthesia: No History of Problems with Anesthesia: No NPO: Yes ASA Class: III Final Preanesthetic Review: No Changes in Pt Med Stat, Meds/Allgs Chart Reviewed, Consent Obtained/Reviewed and Anes Risks/Benef Reviewed Patient Risk: High Procedure Risk: Intermediate Anesthetic Plan Anesthetic Plan: GA Disposition: Standard PACU
[2021-05-23] MEDS: Lactated Ringers 1,000 ML 50 ML IVCONT (13:08)
--- NOTE | 2021-05-23 14:08 | PM.OP ---
Brief Operative Note Date of Service: 05/23/21 Pre-op diagnosis: lung mass Post-op diagnosis: other (Lung cancer) Procedure: EBUS TBNA and bronchoscopy with biopsy Implants: Surgeon: Tha Adames MD Anesthesia: GLMA Was an In Service Educator used for this Procedure?: No Estimated blood loss (mL): 5 Pathology: other (Tracheal biopsies, 4R TBNA) Condition: stable Disposition: floor
[2021-05-23 16:46] LABS: Lactate Dehydrogenase 130 U/L (122-220)
--- NOTE | 2021-05-23 20:44 | OP_ITS ---
SURGEON: Tha Adames MD PREOPERATIVE DIAGNOSIS: Lung mass. POSTOPERATIVE DIAGNOSIS: Lung cancer. PROCEDURE PERFORMED: Endobronchial ultrasound bronchoscopy with TBNA and bronchoscopy with biopsy. ESTIMATED BLOOD LOSS: COMPLICATIONS: ANESTHESIA: LMA. ASSISTANTS: SPECIMENS: ASA CLASSIFICATION: 3. CONSENT: Consent was obtained from the patient. DESCRIPTION OF PROCEDURE: After the patient was sedated and LMA in place, the bronchoscope was introduced into the LMA to the level of the vocal cords. Vocal cords moved symmetrically to the midline. After instilling lidocaine, the bronchoscope was past the vocal cords to the level of the trachea. Using the endobronchial ultrasound, could visualize a significant right paratracheal masslike density in the area of the 4R lymph node station. At that point, using the ultrasound guidance, transbronchial needle aspirations were collected from the first pass. Malignant cells were present. Additional 4 to 5 passes were done at that station and specimens were given to the cytopathologist. The patient had minimal bleeding from the transbronchial needle aspirations. The endobronchial ultrasound was then removed and replaced with the regular bronchoscopy. Again, the bronchoscopy was introduced into the level of the LMA and past the level of the trachea. Upon evaluation, visual evaluation of the trachea appears to be some cobblestoning fungating like endobronchial density protruding out of the right upper lobe and also the right mainstem bronchus causing near obstruction of the right mainstem bronchus, incomplete obstruction of the right upper lobe. 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 Using forceps, endobronchial biopsies were collected of the distal tracheal masslike density and specimens were sent in formalin to sent for pathology. Bronchial washings were also collected for cytology and also microbiology, and those were done bilaterally. The patient was oozing a little blood at the end of the procedure, so therefore 1 ampule of the epinephrine was used, diluted with saline, that was administered with good hemostasis. Iced saline was also used with good hemostasis. No evidence of any active bleeding at the end of procedure. The bronchoscope was then removed. The total endoscopic time approximately 30 minutes. INTERPRETATION: 1. Endobronchial ultrasound bronchoscopy of station 4R, transbronchial needle aspiration and specimens were positive for malignancy. 2. Distal trachea, right mainstem bronchus, endobronchial biopsies for pathology. 3. Bronchial washings for cytology and pathology and also some bilateral washings. Tha Adames MD MR/SAMANTHAL / [id number]
[2021-05-24 03:39] VITALS: BP 117/60; PULSE 77; RESP 16; TEMP 36.6; O2SAT 95
[2021-05-24] MEDS: Doxycycline Hyclate 100 MG in 0.9 % Sodium Chloride 250 ML 166.67 MG IV ×2 (04:24→16:04)
[2021-05-24 07:43] VITALS: BP 117/61; PULSE 80; RESP 16; TEMP 36.3; O2SAT 98
--- NOTE | 2021-05-24 09:26 | PM.HEMONCCN ---
Subjective - Subjective Chief complaint: Cough and shortness of breath Patient: new to practice Consult date: 05/24/21 Primary Care Provider: Felisa Arana MD HPI - Consult Narrative Reason for consult: Lung cancer Narrative: Uyen Snyder is a 75 year old female who was admitted to the hospital because of worsening cough and shortness of breath. She has 20 pack-year history of smoking and presented with 2-week history of worsening non-productive cough and dyspnea. No fever, chills, weight loss, night sweats, hemoptysis, chest pain, nausea, or vomiting. She met sepsis criteria in the ED with tachycardia and leukocytosis. She was found on CXR to have RUL pneumonia; CT chest shows a large bulky mediastinal and right hilar mass, approximately 3.4 by 3.4 by 5.2 cm, encasing the right mainstem bronchus with postobstructive pneumonia. She has no past history of COPD and has never required any inhalers in the past. She has never seen a manpower development specialist manager previously. She has been in good health until 2 weeks ago. Review of Systems - Constitutional Reports as per HPI, Reports no additional constitutional complaints - Cardiovascular Reports no additional cardiovascular complaints - Respiratory Reports no additional respiratory complaints - Gastrointestinal Reports no additional gastrointestinal complaints - Neurologic Reports no additional neurologic complaints Oncology Screenings - ECOG Performance Status ECOG Performance Status: 2 [facility] Medical History: Medical History (Last Reviewed 05/22/21 @ 09:43 by Damaso Contreras MD) Anxiety Dyslipidemia Osteoarthritis of right hip Osteoporosis Smoker unmotivated to quit Tubular adenoma of colon Urge incontinence of urine Vaccination refused by patient Vitamin D deficiency Functional capacity: independent ambulation Family History: Family History (Last Reviewed 05/22/21 @ 10:04 by JESSE Alonzo) Father Leukemia Mother Hip fracture Congestive heart failure Brother Bladder cancer Surgical History: Surgical History (Last Reviewed 05/22/21 @ 10:04 by JESSE Alonzo) History of colonoscopy Social History: Social History (Last Reviewed 05/22/21 @ 10:04 by JESSE Alonzo) Living Situation History: Household Members: Spouse Housing: House Do you presently have visiting nurse or other home services: No Alcohol History: Alcohol intake: never Alcohol History Details: Alcohol intake frequency: does not drink Tobacco History: Patient Tobacco Use Status: Current everyday Tobacco Tobacco use type: Cigarette Cigarette Packs Per Day: 1 Years Smoked: 56 Smoked in Last 30 Days: Yes e-Cigarette/Vaping Use: Never Used Substance Use History: Use of substances other than those prescribed or required for medical reasons: No Currently Displaying Signs/Symptoms of Drug Intoxication Withdrawal: No Domestic Abuse History: Have you been hit, kicked, punched, or otherwise hurt by someone within the past year? If so, by whom?: No Do you feel safe in your current relationship?: Yes Is there a partner from a previous relationship who is making you feel unsafe now?: No Are you made to feel afraid or neglected: No Advance Directives: Are you DNR?: No Advance Directives: No Advance Directives Information Provided: No Homicidal Assessment: Do you have thoughts of harming others: None Do you have a plan to hurt others: No Plan Nutrition Assessment: Recently lost weight without trying: No Nutrition Risks: No Nutritional Risk Patient : No Occupation Assessmet: service: No Current occupational status: retired Home Medications and Allergies Current Medications: Current Medications Generic Name Dose Route Start Last Admin Trade Name Freq PRN Reason Stop Dose Admin Acetaminophen 650 mg 05/21/21 16:25 Acetaminophen 325 Mg Tablet PO Q6H PRN Pain, Mild (Pain Scale 1-3) Acetaminophen 975 mg 05/23/21 12:47 Acetaminophen 325 Mg Tablet PO ONCE PRN Pain, Mild (Pain Scale 1-3) Albuterol Sulfate 2.5 mg 05/21/21 16:30 Albuterol Sulfate (0.083%) 2.5 Mg/3 Ml Vial.Neb INHALE Q4H PRN shortness of breath/wheeze Albuterol Sulfate 2.5 mg 05/23/21 12:47 Albuterol Sulfate (0.083%) 2.5 Mg/3 Ml Vial.Neb INHALE ONCE PRN Wheezing Albuterol/Ipratropium 3 ml 05/21/21 20:00 05/24/21 07:20 Albuterol/Iprat 2.5/0.5mg 3 Ml Ampul.Neb INHALE Not Given RQ4H WHILE AWAKE GOYO Atorvastatin Calcium 10 mg 05/22/21 09:00 05/23/21 08:50 Atorvastatin Calcium 10 Mg Tablet PO 10 mg DAILY GOYO Administration Calcium Carbonate 750 mg 05/22/21 09:00 05/23/21 08:50 Calcium Carbonate 750 Mg Tab.Chew PO Not Given DAILY [facility] Ceftriaxone Sodium 1 gm/ 50 mls @ 100 mls/hr 05/22/21 13:00 05/23/21 15:09 Sodium Chloride IV Not Given Q24H GOYO Doxycycline Hyclate 100 mg/ 250 mls @ 166.67 mls/hr 05/21/21 16:00 05/24/21 06:16 Sodium Chloride IV Infused Q12H [facility] Infusion Lactated Ringer's 1,000 mls @ 50 mls/hr 05/23/21 13:00 05/23/21 14:52 Lr IVCONT Infused .Q20H [facility] Infusion Lorazepam 0.5 mg 05/21/21 16:19 05/23/21 11:29 Lorazepam 0.5 Mg Tablet PO 0.5 mg DAILY PRN Administration anxiety Mirabegron 25 mg 05/22/21 09:00 05/23/21 08:50 Mirabegron 25 Mg Tab.Er.24h PO 25 mg DAILY GOYO Administration Nicotine 14 mg 05/21/21 16:30 05/23/21 08:51 Nicotine 14 Mg Patch.Td24 TRANSDERMA 14 mg DAILY GOYO Administration Ondansetron HCl 4 mg 05/21/21 16:25 Ondansetron Hcl 4 Mg/2 Ml Vial IVPUSH Q8H PRN Nausea and Vomiting Ondansetron HCl 4 mg 05/23/21 12:47 Ondansetron Hcl 4 Mg/2 Ml Vial IVPUSH ONCE PRN Nausea and Vomiting Pharmacy Consult 1 each 05/21/21 14:41 Consult Rx Perform Med Rec MISCELLANE ONCE PRN Consult order Sodium Chloride 3 ml 05/22/21 00:00 05/24/21 00:37 0.9 % Sodium Chloride Flush 3 Ml Syringe IVFLUSH Not Given QSHIFT [facility] Home Medications Medication Instructions Recorded Confirmed Type calcium carbonate 320 mg calcium 650 mg PO DAILY 04/17/21 05/21/21 History (750 mg) chewable tablet (Calcium Antacid) Allergies Allergy/AdvReac Type Severity Reaction Status Date / Time No Known Allergies Allergy Verified 05/21/21 11:14 Physical Exam Vital signs: Vital Signs Temp 97.4 F 05/24/21 07:43 Pulse 80 05/24/21 07:43 Resp 16 05/24/21 07:43 BP 117/61 09/01/21 07:43 Pulse Ox 98 05/24/21 07:43 Intake & Output 05/23/21 05/24/21 05/24/21 18:59 06:59 18:59 Intake Total 1250 / 1500 250 / 1500 Output Total 2 / 2 Balance 1250 / 1498 248 / 1498 Urine Output (Average ml/kg/hr) 0.00 Intake: Intake, IV Amount 1250 / 1500 250 / 1500 Doxycycline Hyclate 100 mg In 0 250 / 500 250 / 500 .9 % Sodium Chloride 250 ml @ 166.67 mls/hr IV Q12H [facility]O Rx#: [id number] Lactated Ringers 1,000 ml @ 50 1000 / 1000 mls/hr IVCONT .Q20H [facility] Rx#: [id number] Output: Output, Urine Amount 2 / 2 Other: Meal Refused No NPO Yes Yes Urine Bathroom Urine Color Yellow Weight 80.739 kg - Constitutional Present: no acute distress - Routine HEENT Exam Head: Present: normal inspection Eye: Present: normal appearance - Routine Neck Exam Present: supple. Absent: lymphadenopathy - Routine Respiratory Exam Present: rhonchi. Absent: accessory muscle use, respiratory distress - Routine Cardiovascular Exam Cardiovascular: Present: S1, S2 - Routine Abdominal Exam Present: soft - Routine Extremities Exam Absent: calf tenderness, pedal edema - Routine Neurological Exam Present: alert, oriented X3 - Routine Psychiatric Exam Present: normal affect Hem/Onc Consult Result - Labs CBC & Chem 7: 05/23/21 05:37 05/23/21 05:37 Assessment and Plan Patient Active problem list reviewed?: Yes (1) Mediastinal mass Status: Acute Assessment and plan: 1. This is a pleasant 75-year-old woman with her right hilar mass and right upper lobe pneumonia. She underwent bronchoscopy/biopsy of mass that is protruding into right mainstem bronchus and causing significant obstruction. 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 CEA is elevated at 8.7, LDH is normal. Brain MRI ordered today is negative for metastatic disease. Since patient has impending obstruction of right main stem bronchus, it would be prudent to get a Radiation Oncology consultation. I have discussed the case with both manpower development specialist manager as well as radiologist. Transfer to a facility with radiation oncology services would be prudent. Further staging with a PET-CT can be performed as outpatient. Treatment recommendations would be made after final pathological diagnosis and staging workup. I thank you for this consultation. - Time Spent With Patient Time Spent with Patient (in minutes): 20
--- NOTE | 2021-05-24 09:30 | HO.POSTANES ---
Post Anesthesia Evaluation Post Anesthesia Evaluation Vital Signs: Vital Signs Temp Pulse Resp BP Pulse Ox 05/24/21 07:43 97.4 F 80 16 117/61 98 05/24/21 03:39 98 F 77 16 117/60 95 05/23/21 22:50 97.7 F 81 16 120/56 L 95 Anesthesia: General LMA Mental Status: Awake Pain Control: Satisfactory Nausea/Vomiting: None Hydration: Adequate Anesthesia-Related Issues: No Anes. Related Issues
[2021-05-24] MEDS: Nicotine 14 MG PATCH.TD24 TRANSDERMA (09:48)
[2021-05-24] MEDS: Atorvastatin Calcium 10 MG TABLET PO (09:48)
[2021-05-24] MEDS: Mirabegron 25 MG TAB.ER.24H PO (09:48)
[2021-05-24 11:29] VITALS: BP 118/79; PULSE 87; RESP 17; TEMP 36.7; O2SAT 97
[2021-05-24] MEDS: LORazepam 2 MG/ML VIAL 1 MG IVPUSH (11:30)
--- NOTE | 2021-05-24 11:30 | MHC.CM.PN ---
PER MULTIDISCIPLINARY ROUNDS HOSPITALIST WILL ATTEMPT TO TRANSFER TO [facility] FOR INPT RADIATION, CM WILL CONT TO FOLLOW.
[2021-05-24] MEDS: cefTRIAXone sodium 1 GM in 0.9 % Sodium Chloride 50 ML IV (13:30)
--- NOTE | 2021-05-24 14:06 | HO.PM.IMPN ---
Subjective Subjective Date of Service: 05/24/21 Interval History: some cough, minimal dyspnea Review of Systems Review of Systems: Yes all other systems are reviewed and are negative Physical Exam Vital Signs: Vital Signs: Last Vital Signs Temp 98.1 F 05/24/21 11:29 Pulse 87 05/24/21 11:29 Resp 17 05/24/21 11:29 BP 118/79 05/24/21 11:29 Pulse Ox 97 05/24/21 11:29 Body Mass Index 28.7 Gen: in no acute distress HEENT: sclera anicteric, moist mucus membranes Neck: supple Lungs: diminished on R side with expiratory rhonchi Heart: tachycardic, no murmurs Abd: soft, non-tender, non-distended Ext: no edema Skin: warm/well-perfused Neuro: alert and oriented x3, no focal findings Psych: appropriate affect Objective Data Current Medications Generic Name Dose Route Start Last Admin Trade Name Freq PRN Reason Stop Dose Admin Acetaminophen 650 mg 05/21/21 16:25 Acetaminophen 325 Mg Tablet PO Q6H PRN Pain, Mild (Pain Scale 1-3) Acetaminophen 975 mg 05/23/21 12:47 Acetaminophen 325 Mg Tablet PO ONCE PRN Pain, Mild (Pain Scale 1-3) Albuterol Sulfate 2.5 mg 05/21/21 16:30 Albuterol Sulfate (0.083%) 2.5 Mg/3 Ml Vial.Neb INHALE Q4H PRN shortness of breath/wheeze Albuterol Sulfate 2.5 mg 05/23/21 12:47 Albuterol Sulfate (0.083%) 2.5 Mg/3 Ml Vial.Neb INHALE ONCE PRN Wheezing Albuterol/Ipratropium 3 ml 05/21/21 20:00 05/24/21 11:21 Albuterol/Iprat 2.5/0.5mg 3 Ml Ampul.Neb INHALE Not Given RQ4H WHILE AWAKE GOYO Atorvastatin Calcium 10 mg 05/22/21 09:00 05/24/21 09:48 Atorvastatin Calcium 10 Mg Tablet PO 10 mg DAILY GOYO Administration Calcium Carbonate 750 mg 05/22/21 09:00 05/24/21 10:05 Calcium Carbonate 750 Mg Tab.Chew PO Not Given DAILY GOYO Ceftriaxone Sodium 1 gm/ 50 mls @ 100 mls/hr 05/22/21 13:00 05/24/21 13:30 Sodium Chloride IV 100 mls/hr Q24H GOYO Administration Doxycycline Hyclate 100 mg/ 250 mls @ 166.67 mls/hr 05/21/21 16:00 05/24/21 06:16 Sodium Chloride IV Infused Q12H GOYO Infusion Lactated Ringer's 1,000 mls @ 50 mls/hr 05/23/21 13:00 05/24/21 09:50 Lr IVCONT Not Given .Q20H GOYO Lorazepam 0.5 mg 05/21/21 16:19 05/23/21 11:29 Lorazepam 0.5 Mg Tablet PO 0.5 mg DAILY PRN Administration anxiety Mirabegron 25 mg 05/22/21 09:00 05/24/21 09:48 Mirabegron 25 Mg Tab.Er.24h PO 25 mg DAILY GOYO Administration Nicotine 14 mg 05/21/21 16:30 05/24/21 09:48 Nicotine 14 Mg Patch.Td24 TRANSDERMA 14 mg DAILY GOYO Administration Ondansetron HCl 4 mg 05/21/21 16:25 Ondansetron Hcl 4 Mg/2 Ml Vial IVPUSH Q8H PRN Nausea and Vomiting Ondansetron HCl 4 mg 05/23/21 12:47 Ondansetron Hcl 4 Mg/2 Ml Vial IVPUSH ONCE PRN Nausea and Vomiting Pharmacy Consult 1 each 05/21/21 14:41 Consult Rx Perform Med Rec MISCELLANE ONCE PRN Consult order Sodium Chloride 3 ml 05/22/21 00:00 05/24/21 09:50 0.9 % Sodium Chloride Flush 3 Ml Syringe IVFLUSH Not Given [facility] Labs CBC & Chem 7: 05/23/21 05:37 05/23/21 05:37 Labs: Laboratory Results - last 24 hr 05/23/21 05:37 Lactate Dehydrogenase 130 Carcinoembryonic Ag 8.70 Impressions Brain MRI 05/24/21 12:57 IMPRESSION: - There is no evidence of intracranial metastatic disease; there are no enhancing lesions intracranially. - There is global cerebral volume loss and there is mild chronic microangiopathy. - Left maxillary sinus is nearly completely opacified. Microbiology Microbiology Results: Microbiology 05/23/21 13:57 Gram Stain - Final Bronchial Washings Routine Culture - Preliminary No growth to date. 05/21/21 14:03 Blood Culture - Preliminary Blood - Venous No growth after 48 hours. 05/21/21 13:49 Blood Culture - Preliminary Blood - Venous No growth after 48 hours. Assessment and Plan (1) Pneumonia: Status: Acute (2) Mediastinal mass: Status: Acute Assessment and Plan: hospital d#4 75 yo woman with 20 pack-year history of smoking without diagnosis of chronic lung disease presents with cough and dypsnea, found to have large bulky mediastinal/hilar mass encasing the right mainstem bronchus with postobstructive pneumonia # sepsis due to postobstructive pneumonia - ceftriaxone + doxycycline d#2, BCx negative, trend PCT, standing/prn nebs # mediastinal/hilar mass - bronchscopy done 05/23/[address] Adames: 1. Endobronchial ultrasound bronchoscopy of station 4R, transbronchial needle aspiration and specimens were positive for malignancy. 2. Distal trachea, right mainstem bronchus, endobronchial biopsies for pathology. 3. Bronchial washings for cytology and pathology and also some bilateral washings. - Hallie Gonsales + Zacarias recommend transfer for inpatient radiation - MRI brain without evidence of metastatic disease # elevated INR - unclear cause, repeat in AM # OAB - continue Mybertiq # dyslipidemia -continue statin # anxiety - prn lorazepam # tobacco abuse - NRT # VTE ppx - SCDs # dispo - will contact [facility] for transfer Quality Stroke Does the patient have a stroke diagnosis?: No VTE Prior VTE?: No VTE Risk Level:: Medical - moderate - high VTE Device Contraindication: N/A - Device Ordered VTE Drug Contraindication: Treatment Not Indicated
[2021-05-24 16:00] VITALS: BP 128/75; PULSE 88; RESP 18; TEMP 37; O2SAT 96
--- NOTE | 2021-05-24 17:57 | PM.DS ---
DS: Providers Provider Date of Service: 05/24/21 Date of admission: 05/21/21 16:25 Date of discharge: 05/24/21 Primary care physician: Felias Arana MD Admitting clinician: Christophe Son Consults: 05/21/21 15:21 Consult to Pulmonology Routine Consulting Provider: Ezekiel Guzman Reason for consultation: Right mediastinal and hilar soft tissue mass causing narrow R mainstem bron 05/21/21 16:30 Consult to Thoracic Surgery Routine Consulting Provider: [facility] Reason for consultation: mediastinal/hilar mass 05/23/21 14:47 Consult to Hematology / Oncology Routine Consulting Provider: Evelyne Gonsales Reason for consultation: new dx lung cancer Has provider been notified: Yes Attending physician on discharge: Christophe Son DS: Transfer Hospital Acceptance Reason for Transfer: inpatient radiation versus chemotherapy Name of Facility: [facility] Accepting Provider: Dr Gonzales DS: Diagnosis Discharge Diagnosis (1) Mediastinal mass: Status: Acute (2) Endobronchial cancer: Status: Acute (3) Bronchial obstruction: Status: Acute (4) Postobstructive pneumonia: Status: Acute (5) Sepsis: Status: Acute (6) Tobacco abuse: Status: Acute DS: Medications Discharge Medications Home Medications: Home Medications Medication Instructions Recorded Confirmed calcium carbonate 320 mg calcium 650 mg PO DAILY 04/17/21 05/21/21 (750 mg) chewable tablet (Calcium Antacid) Previous Rx's Medication Instructions Recorded atorvastatin 10 mg tablet 10 mg PO DAILY #90 tab 06/28/20 mirabegron 25 mg tablet,extended 25 mg PO DAILY #90 tab 09/28/20 release 24 hr (Myrbetriq) lorazepam 0.5 mg tablet 0.5 mg PO DAILY PRN #20 tab 04/19/21 naproxen 500 mg tablet 500 mg PO .QD PRN #30 tab 04/24/21 albuterol sulfate 2.5 mg INHALATION Q4H PRN #1 ml 05/24/21 ceftriaxone 1 gram solution for 1 g IV Q24H #1 ea 05/24/21 injection doxycycline hyclate 100 mg 100 mg IV Q12H #1 ea 05/24/21 intravenous powder for solution (Doxy-100) nicotine 14 mg/24 hr daily 14 mg TRANSDERMAL DAILY #1 ea 05/24/21 transdermal patch DS: Summary Hospital Course Hospital Course: from my admission H+P, 05/21/21: 75yo woman with 20 pack-year history of smoking without diagnosis of chronic lung disease presents with 2-week history of worsening non-productive cough and dyspnea.? No fever, chills, weight loss, night sweats, hemoptysis, chest pain, nausea, or vomiting.? She met sepsis criteria in the ED with tachycardia and leukocytosis.? She was found on CXR to have RUL pneumonia; CT chest shows a large bulky mediastinal and right hilar mass, approximately 3.4 by 3.4 by 5.2 cm, encasing the right mainstem bronchus with postobstructive pneumonia.? She is not on aspirin or any blood thinners.? She was given ceftriaxone and azithromycin. The patient was admitted to the medical/surgical floor. She was t reated with ceftriaxone and doxycycline for sepsis due to postobstructive pneumonia. She was not hypoxic. Blood cultures were negative. For the mediastinal/hilar mass, she underwent bronchoscopy on 05/23/[address] Adames. The procedure showed: 1. Endobronchial ultrasound bronchoscopy of station 4R, transbronchial needle aspiration and specimens were positive for malignancy. 2. Distal trachea, right mainstem bronchus, endobronchial biopsies for pathology. 3. Bronchial washings for cytology and pathology and also some bilateral washings. MRI of the brain was negative for metastatic disease. Due to concern for impending complete obstruction of the right mainstem bronchus, Hallie Adames and Ilda recommended the patient be transferred to [facility] for inpatient radiation versus chemotherapy pending final pathology results. She was stable at the time of transfer with no oxygen requirement. Time Spent with Patient Time attestation: Total time spent providing and/or coordinating discharge services: Discharge coordination time: Greater than 30 minutes Quality: Stroke Does the patient have a stroke diagnosis?: No Physical Exam Vital Signs: Vital Signs: Last Vital Signs Temp 98.6 F 05/24/21 16:00 Pulse 88 05/24/21 16:00 Resp 18 05/24/21 16:00 BP 128/75 05/24/21 16:00 Pulse Ox 96 05/24/21 16:00 Body Mass Index 28.7 Gen: in no acute distress HEENT: sclera anicteric, moist mucus membranes Neck: supple Lungs: diminished on R side with expiratory rhonchi Heart: tachycardic, no murmurs Abd: soft, non-tender, non-distended Ext: no edema Skin: warm/well-perfused Neuro: alert and oriented x3, no focal findings Psych: appropriate affect DS: Data Data Completed and Pending Completed studies during hospitalization [Text1]: Laboratory Results WBC 11.0 X10*3/uL (4.8-10.8) H 05/23/21 05:37 RBC 3.83 X10*6/uL (4.20-5.50) L 05/23/21 05:37 Hgb 10.1 g/dl (12.0-16.0) L 05/23/21 05:37 Hct 31.9 % (37-47) L 05/23/21 05:37 MCV 83.3 fL (80-98) 05/23/21 05:37 MCH 26.4 pg (27.0-33.0) L 05/23/21 05:37 MCHC 31.7 g/dl (31.0-35.0) 05/23/21 05:37 RDW 14.9 % (11.0-16.0) 05/23/21 05:37 Plt Count 204 X10*3/uL (160-400) 05/23/21 05:37 MPV 9.2 fL (9.4-12.3) L 05/23/21 05:37 Immature Gran % (Auto) 0.6 % (0.0-0.4) H 05/22/21 06:28 Neut % (Auto) 82.9 % (45-73) H 05/22/21 06:28 Lymph % (Auto) 9.5 % (20-40) L 05/22/21 06:28 [place] % (Auto) 6.6 % (2-11) 05/22/21 06:28 Eos % (Auto) 0.1 % (0-4) 05/22/21 06:28 Baso % (Auto) 0.3 % (0-2) 05/22/21 06:28 Lymph # (Auto) 1.7 X10*3/uL (1.2-4.9) 05/22/21 06:28 [place] # (Auto) 1.2 X10*3/uL (0.1-1.2) 05/22/21 06:28 Eos # (Auto) 0.0 X10*3/uL (0.0-0.4) 05/22/21 06:28 Baso # (Auto) 0.1 X10*3/uL (0.0-0.2) 05/22/21 06:28 Abs Immat Gran (auto) 0.11 X10*3/uL (0.00-0.03) H 05/22/21 06:28 Absolute Neuts (auto) 14.8 X10*3/uL (2.0-8.3) H 05/22/21 06:28 Absolute Nucleated RBC 0.000 X10*3/uL (0.0-0.012) 05/23/21 05:37 Nucleated RBC % (auto) 0.0 /100WBC (0.0-0.2) 05/23/21 05:37 Neutrophils % (Manual) 81 % (45-73) H 05/21/21 11:45 Band Neutrophils % 12 % (3-5) H 05/21/21 11:45 Lymphocytes % (Manual) 3 % (20-40) L 05/21/21 11:45 Monocytes % (Manual) 4 % (2-11) 05/21/21 11:45 Abs Neuts (Manual) 16.3 X10*3/uL (2.2-7.9) H 05/21/21 11:45 Lymphocytes # (Manual) 0.5 X10*3/uL (0.6-4.8) L 05/21/21 11:45 Monocytes # (Manual) 0.7 X10*3/uL (0.0-1.2) 05/21/21 11:45 Toxic Vacuolation PRESENT 05/21/21 11:45 Platelet Estimate NORMAL (NORMAL) 05/21/21 11:45 Plt Morphology Comment NORMAL 05/21/21 11:45 RBC Morphology NORMAL 05/21/21 11:45 PT 18.8 SEC (9.9-13.0) H 05/22/21 06:28 INR 1.6 (0.9-1.1) H 05/22/21 06:28 Sodium 137 mmol/L (135-145) 05/23/21 05:37 Potassium 4.0 mmol/L (3.3-5.1) 05/23/21 05:37 Chloride 107 mmol/L (96-108) 05/23/21 05:37 Carbon Dioxide 24 mmol/L (22-29) 05/23/21 05:37 Anion Gap 10 (12-20) L 05/23/21 05:37 BUN 12 mg/dL (9-16) 05/23/21 05:37 Creatinine 0.60 mg/dL (0.5-1.4) 05/23/21 05:37 Estim Creat Clear Calc 88.1 05/23/21 05:37 Estimated GFR > 60 05/23/21 05:37 Random Glucose 102 mg/dL (60-115) 05/23/21 05:37 Lactic Acid 1.7 mmol/L (0.5-2.0) 05/21/21 13:49 Calcium 8.6 mg/dL (8.4-10.2) 05/23/21 05:37 Magnesium 1.7 mg/dL (1.6-2.6) 05/21/21 12:35 Total Bilirubin 0.5 mg/dL (0.0-1.0) 05/21/21 12:35 Direct Bilirubin 0.2 mg/dL (0.0-0.5) 05/21/21 12:35 AST 11 U/L (5-31) 05/21/21 12:35 ALT 9 U/L (0-31) 05/21/21 12:35 Alkaline Phosphatase 125 U/L (39-117) H 05/21/21 12:35 Lactate Dehydrogenase 130 U/L (122-220) 05/23/21 05:37 B-Natriuretic Peptide 13 pg/mL (<100) 05/21/21 11:45 Total Protein 7.0 g/dL (6.5-8.0) 05/21/21 12:35 Albumin 4.1 g/dL (3.5-5.0) 05/21/21 12:35 Carcinoembryonic Ag 8.70 ng/mL 05/23/21 05:37 Procalcitonin 0.29 ng/mL 05/21/21 12:35 Urine Color YELLOW 05/21/21 14:03 Urine Appearance HAZY 05/21/21 14:03 Urine pH 6.0 (5.0-8.0) 05/21/21 14:03 Ur Specific [place] 1.015 (1.005-1.025) 05/21/21 14:03 Urine Protein TRACE MG/DL (NEG-TRACE) 05/21/21 14:03 Urine Glucose (UA) NEG MG/DL (NEG) 05/21/21 14:03 Urine Ketones NEG MG/DL (NEG) 05/21/21 14:03 Urine Blood TRACE (NEG) 05/21/21 14:03 Urine Nitrite NEG (NEG) 05/21/21 14:03 Ur Leukocyte Esterase 2+ (NEG) H 05/21/21 14:03 Urine RBC 1-4 /HPF (0) 05/21/21 14:03 Urine WBC 5-9 /HPF (0-4) H 05/21/21 14:03 Ur Squamous Epith Cells 3+ /LPF 05/21/21 14:03 Urine Bacteria 1+ /LPF 05/21/21 14:03 Urine Mucus 1+ /LPF 05/21/21 14:03 Coronavirus (PCR) NEGATIVE (Negative) 05/21/21 11:20 Influenza Type A (PCR) NEGATIVE (Negative) 05/21/21 11:20 Influenza Type B (PCR) NEGATIVE (Negative) 05/21/21 11:20 RSV RNA Qual (PCR) NEGATIVE (Negative) 05/21/21 11:20 Impressions Chest X-Ray 05/21/21 11:58 IMPRESSION: Opacity overlying the right upper lung is concerning for right upper lobe pneumonia. Consider follow-up imaging after treatment. Chest CT 05/21/21 13:08 IMPRESSION: Right mediastinal and hilar lymphadenopathy/soft tissue mass causing narrowing of the right mainstem bronchus with what appears to be postobstructive pneumonitis. Significant centrilobular emphysema. Brain MRI 05/24/21 12:57 IMPRESSION: - There is no evidence of intracranial metastatic disease; there are no enhancing lesions intracranially. - There is global cerebral volume loss and there is mild chronic microangiopathy. - Left maxillary sinus is nearly completely opacified. Pending studies at discharge: Pending at discharge 05/23/21 13:57 Surgical [PTH] Stat Cytology [PTH] Routine Labs on day of discharge: Preliminary micro results at discharge 05/23/21 13:57 Routine Culture - Preliminary Bronchial Washings No growth to date. 05/21/21 14:03 Blood Culture - Preliminary Blood - Venous No growth after 48 hours. 05/21/21 13:49 Blood Culture - Preliminary Blood - Venous No growth after 48 hours. 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 Referrals: Felisa Arana MD [Primary Care Provider] - 1 Week Discharge Medications: New nicotine 14 mg/24 hr Patch 24 Hour 14 mg transdermal DAILY Qty: 1 RF: 0 albuterol sulfate 2.5 mg /3 mL (0.083 %) Solution For Nebulization 2.5 mg inhalation Q4H PRN (Reason: shortness of breath/wheeze) Qty: 1 RF: 0 ceftriaxone 1 gram Recon Soln 1 g IV Q24H Qty: 1 RF: 0 doxycycline hyclate [Doxy-100] 100 mg Recon Soln 100 mg IV Q12H Qty: 1 RF: 0 Continued atorvastatin 10 mg tablet 10 mg PO DAILY Qty: 90 RF: 4 lorazepam 0.5 mg tablet 0.5 mg PO DAILY PRN (Reason: anxiety) Qty: 20 RF: 0 naproxen 500 mg tablet 500 mg PO .QD PRN (Reason: pain) Qty: 30 RF: 0 Myrbetriq 25 mg tablet extended release 24 hr 25 mg PO DAILY Qty: 90 RF: 1 calcium carbonate [Calcium Antacid] 320 mg calcium (750 mg) tablet,chewable 650 mg PO DAILY RF: 0 Discharge Orders: Discharge Order (Routine); Ordered 05/24/21 Ordered By: Christophe Son Diet: advance to usual diet Activity on Discharge: As tolerated Stand Alone Forms: Patient Portal Discharge page Care Plan Goals: diagnosis and treatment of lung cancer Health Concerns: 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
== END 2021-05-24 19:00 | disposition short-term general hospital (02) | DRG 194 ==
LOC: HO.ED 15:08 → HO.EDOVER 16:50 → HO.S3 17:09
PROVIDERS: Hospitalist; Internal Medicine; Physician Assistant; Student in an Organized Health Care Education/Training Program; Admitting Provider Family Medicine; Emergency Provider Internal Medicine; PCP Internal Medicine; Visit Provider Family Medicine
PROC: 0BD38ZX Extraction of Right Main Bronchus, Via Natural or Artificial Opening Endoscopic, Diagnostic (ICD-10-PCS; principal; 2021-05-23 13:00)
DX: J18.9 Pneumonia, unspecified organism (principal); C34.01 Malignant neoplasm of right main bronchus; F17.210 Nicotine dependence, cigarettes, uncomplicated; R79.1 Abnormal coagulation profile; Z71.6 Tobacco abuse counseling; E78.5 Hyperlipidemia, unspecified; F41.9 Anxiety disorder, unspecified; N32.81 Overactive bladder; Z20.822 Contact with and (suspected) exposure to COVID-19; Z79.899 Other long term (current) drug therapy
CPT/HCPCS: 0241U; 36415; 70553; 71045; 71250; 80048; 80076; 81001; 82378; 83605; 83615; 83735; 83880; 84145; 85007; 85025; 85027; 85610; 87040; 87071; 87086; 87205; 88112; 88172; 88173; 88305; 88341; 88342; 94640; 96365; 96366; 96367; 99285; A9585; J0171; J0456; J0696; J1100; J2060; J2250; J3010

== ENCOUNTER 2021-10-19 13:14 | Emergency (ER) | payer MEDICARE, SELFPAY ==
--- NOTE | 2021-10-19 13:35 | ED_ITS ---
HPI - CPR General Stated Complaint: cardic arrest Time Seen by Provider: 10/19/21 13:29 Source: EMS Mode of arrival: EMS Limitations: other (In cardiac arrest) History of Present Illness HPI narrative: Patient is brought to the emergency room by EMS. Prior to arrival, patient was found by her and her son in the couch covered in copious bloody vomit. Patient had no pulse, patient's son started CPR. On arrival of EMS, patient was in a systole, intubated, large amount of blood came through the ET tube. They work the patient for 25 minutes at the patient's residence, the whole time patient was in asystole. On arrival to the emergency room, patient remained in a systole, more epinephrine were given every 2 minutes. Son of patient arrived to the emergency room, I discussed with him that any further resuscitation efforts would be futile. Patient's son agreed to discontinue resuscitation efforts. After 35 minutes in total of CPR, time of was called at 13:22. Reviewing patient's record, in May of 2021, patient was found to have and right mainstem bronchus obstruction/mass. Patient was transferred to [facility] for radiation versus chemotherapy. Unknown if patient was on any blood thinners after she was discharged from [facility]. Related Data Home Medications Medication Instructions Recorded Confirmed calcium carbonate 320 mg calcium 650 mg PO DAILY 04/17/21 06/06/21 (750 mg) chewable tablet (Calcium Antacid) Previous Rx's Medication Instructions Recorded atorvastatin 10 mg tablet 10 mg PO DAILY #90 tab 06/28/20 albuterol sulfate 2.5 mg (3 mL) INHALATION Q4H PRN 05/24/21 #1 ml nicotine 14 mg/24 hr daily 14 mg TRANSDERMAL DAILY #1 ea 05/24/21 transdermal patch mirabegron 25 mg tablet,extended 25 mg PO DAILY #90 tab 05/30/21 release 24 hr (Myrbetriq) nebulizers (Aeroneb Go Nebulizer) #1 ea 06/06/21 ipratropium 0.5 mg-albuterol 3 mg 3 ml INHALATION Q6H PRN #90 ml 06/30/21 (2.5 mg base)/3 mL nebulization soln Symbicort 160 mcg-4.5 2 puff INHALATION Q12H #10.2 g NS 10/13/21 mcg/actuation HFA aerosol inhaler (budesonide-formoterol) naproxen 500 mg tablet 500 mg PO DAILY PRN #30 tab 10/12/21 lorazepam 0.5 mg tablet 0.5 mg PO DAILY PRN #20 tab 10/17/21 Allergies Allergy/AdvReac Type Severity Reaction Status Date / Time No Known Allergies Allergy Verified 06/06/21 10:23 Review of Systems Verdana 4l Review of Systems: Yes Unobtainable due to mental Verdana 4d condition [facility] Past Medical History Medical History Anxiety COPD (chronic obstructive pulmonary disease) Dyslipidemia Lung cancer Mediastinal mass Nicotine addiction Osteoarthritis of right hip Osteoporosis Postobstructive pneumonia Smoker unmotivated to quit Tubular adenoma of colon Urge incontinence of urine Vaccination refused by patient Vitamin D deficiency Surgical History History of colonoscopy Family History Family History Father Leukemia Mother Hip fracture Congestive heart failure Brother Bladder cancer Social History Social History Household Members: Spouse Housing: House Do you presently have visiting nurse or other home services: No Alcohol intake: never Patient Tobacco Use Status: Former Tobacco user Tobacco use type: Cigarette Years Smoked: 56 e-Cigarette/Vaping Use: Never Used Advance Directives: No Advance Directives Information Provided: No service: No Current occupational status: retired Physical Exam 2 Verdana 4l Const: Verdana 4d Verdana 4d Other: Verdana 4d Verdana 4d Appearance: In cardiac arrest, CPR in progress Eyes: Pupils equal, 3 mm, unresponsive ENT: Oropharynx covered in copious fresh blood and blood clots, patient intubated, ETT position confirm with GlideScopeGlideScope, in good position Neck: Normal inspection. CVS: Asystole, no cardiac activity on bedside ultrasound Respiratory: Intubated, no spontaneous respirations Abdomen: Distended, hard to palpation Skin: Skin cold and mottled Extremities: No obvious signs of trauma Neuro: Unresponsive Course Course Course Narrative: Reviewing patient's records, patient likely has right mainstem bronchus malignancy. Cause of unclear, but cardiac arrest was likely secondary to massive bleed, malignancy might have eroded through a major vessel. Patient's son at bedside Discharge Plan Discharge Clinical Impression: Cardiac arrest Patient Disposition: Prescriptions: No Action atorvastatin 10 mg tablet 10 mg PO DAILY Qty: 90 4RF Myrbetriq 25 mg tablet extended release 24 hr 25 mg PO DAILY Qty: 90 1RF ipratropium-albuterol 0.5 mg-3 mg(2.5 mg base)/3 mL solution for nebulization 3 ml inhalation Q6H PRN (Reason: wheezing) Qty: 90 0RF budesonide-formoterol [Symbicort] 160-4.5 mcg/actuation HFA aerosol inhaler 2 puff inhalation Q12H Qty: 10.2 1RF naproxen 500 mg tablet 500 mg PO DAILY PRN (Reason: for pain) Qty: 30 0RF lorazepam 0.5 mg tablet 0.5 mg PO DAILY PRN (Reason: anxiety) Qty: 20 0RF nicotine 14 mg/24 hr Patch 24 Hour 14 mg transdermal DAILY Qty: 1 0RF albuterol sulfate 2.5 mg /3 mL (0.083 %) Solution For Nebulization 2.5 mg inhalation Q4H PRN (Reason: shortness of breath/wheeze) Qty: 1 0RF (DME) Aeroneb Go Nebulizer Misc See Rx Instructions .Route Qty: 1 0RF Rx Instructions: As directed calcium carbonate [Calcium Antacid] 320 mg calcium (750 mg) tablet,chewable 650 mg PO DAILY 0RF
--- NOTE | 2021-10-19 13:58 | PC.NURSE ---
spoke with kianna Gonzales at [facility] pt accepted for organ and tissue donation
[2021-10-19 15:24] LABS: Glucose, Whole Blood 78 mg/dL (60-115)
== END 2021-10-19 15:17 | disposition expired ==
PROVIDERS: Emergency Provider Emergency Medicine
DX: I46.9 Cardiac arrest, cause unspecified (principal); C34.90 Malignant neoplasm of unspecified part of unspecified bronchus or lung; F17.200 Nicotine dependence, unspecified, uncomplicated; J44.9 Chronic obstructive pulmonary disease, unspecified
CPT/HCPCS: 82947; 96374; 99282; 99285